=== PATIENT | female | born 1945 | race Caucasian/White ===

== ENCOUNTER 2020-10-24 08:10 | Outpatient (CLI) | payer MEDICARE, SELFPAY ==
--- NOTE | ~2020-10-24 | NM_ITS ---
EXAMINATION: NM soniya stress w perfusion DATE: 10/24/2020 11:55 INDICATION: Chest pain, unspecified. TECHNIQUE: Rest images were obtained following intravenous administration of 10.2 mCi Tc99m tetrofosm in (Myoview). The patient was infused intravenously with Lexiscan (regadenoson). Then, 31.77 mCi Tc99 m tetrofosmin (Myoview) was administered intravenously, and stress images were obtained. Data was rec onstructed into short axis and horizontal and vertical long axis SPECT images. Gated SPECT images wer e also obtained. COMPARISON: None. FINDINGS: There is a large, mild, fixed perfusion defect involving apical lateral segment and mid to basal anterolateral and inferolateral segments of left ventricle, consistent with infarct. No reversi ble component to suggest ischemia. There is no segmental wall motion abnormality. Left ventricular ejection fraction measures >70%. IMPRESSION: 1. 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 2. Normal left ventricular ejection fraction measuring >70%. Reviewed, dictated and finalized at location B.
--- NOTE | 2020-10-24 08:21 | ECHO_ITS ---
Patient Info Name: Opal Diaz Age: 75 years : 1945 Gender: Female Ht: 60 in Wt: 145 lbs BSA: 1.69 m2 HR: 61 bpm BP: 176 / 83 mmHg Technical Quality: Good Exam Date: 10/24/2020 9:06 AM Exam Location: [facility] Patient Status: Outpatient Admit Date: 10/24/2020 Staff Ordering Physician: Chapincito Dunlap DO Irrigation District Manager: Dee Anthony RDCS Attending Provider: Chapincito Dunlap DO Referring Physician: Germán GARDINER; Exam Type: CA echo doppler color flow Study Info Indications - cad s/p cabg R07.89 - Other chest pain Complete two-dimensional, color flow and Doppler transthoracic echocardiogram is performed. Summary 1. Complete two-dimensional, color flow and Doppler transthoracic echocardiogram is performed. 2. Left ventricular chamber dimension is normal. 3. Left ventricular systolic function is normal, estimated at 60-65%. 4. There is moderate asymmetric septal increased left ventricular wall thickness. 5. The left ventricular diastolic function is grade I diastolic dysfunction. 6. E/e' 15 is elevated. 7. Left atrial chamber dimension is severely enlarged. 8. There is mild aortic valve sclerosis. 9. The mitral valve has mildy calcified annulus. 10. There is mild mitral valve regurgitation. 11. No pulmonary hypertension, estimated pulmonary arterial systolic pressure is 15 mmHg. 12. There is trace pulmonic regurgitation. Left Ventricle E/e' 15 is elevated. Left ventricular chamber dimension is normal. Left ventricular systolic function is normal, estimated at 60-65%. There is moderate asymmetric septal increased left ventricular wall thickness. The left ventricular diastolic function is grade I diastolic dysfunction. Right Ventricle Right ventricular chamber dimension is normal. Right ventricular systolic function is normal. Left Atria Left atrial chamber dimension is severely enlarged. Right Atria Right atrial chamber dimension is normal. Aortic Valve The aortic valve is trileaflet. There is mild aortic valve sclerosis. There is no aortic valve stenosis. There is no aortic valve regurgitation. Pulmonic Valve There is trace pulmonic regurgitation. Mitral Valve The mitral valve has mildy calcified annulus. There is no mitral valve stenosis. There is mild mitral valve regurgitation. Tricuspid Valve There is no tricuspid valve regurgitation. No pulmonary hypertension, estimated pulmonary arterial systolic pressure is 15 mmHg. Pericardium/Pleural There is no pericardial effusion. Inferior Vena Cava Normal inferior vena cava with >50% collapse upon inspiration consistent with normal right atrial pressure, 5 mmHg. Aorta The aortic root size at the sinus of Valsalva is normal. Left Ventricular Outflow Tract Name Value Normal LVOT 2D LVOT Diameter 2.0 cm LVOT Doppler LVOT Peak Gradient 5 mmHg LVOT Mean Gradient 3 mmHg LVOT VTI 23 cm LVOT VTI/AV VTI Ratio 0.7 LVOT Stroke Volume 72 ml
--- NOTE | 2020-10-24 08:22 | EST_ITS ---
Patient Info Name: Opal Diaz Age: 75 years : 1945 Gender: Female Ht: 60 in Wt: 145 lbs BSA: 1.69 m2 HR: 58 bpm BP: 179 / 90 mmHg Heart Rhythm: Sinus Rhythm Exam Date: 10/24/2020 10:51 AM Exam Location: [facility] Patient Status: Outpatient Admit Date: 10/24/2020 Staff Ordering Physician: Chapincito Dunlap DO Attending Provider: Exercise Technologist: Marva Diaz CT Exercise Physician: Chapincito Dunlap DO Exam Type: CA stress soniya w NM Study Info Indications R07.9 - Chest pain, unspecified A regadenoson stress test was performed. Summary 1. 1. Negative lexiscan stress test for ischemic ST changes by ECG criteria. 2. 2. Baseline hypertension. 3. 3. Nuclear scan to follow and will be reported separately. Please correlate with it. 4. 4. Patient informed of the above results. Protocol: Lexiscan Stress ECG Details Stage: REST Duration (min): 1 min : 51 sec HR (bpm): 59 SBP (mmHg): 179 DBP (mmHg): 90 Stage: REST Duration (min): 6 min : 41 sec HR (bpm): 64 SBP (mmHg): 179 DBP (mmHg): 90 Stage: STAGE 1 Duration (min): 1 min : 0 sec HR (bpm): 63 SBP (mmHg): 179 DBP (mmHg): 90 Stage: RECOVERY Duration (min): 1 min : 0 sec HR (bpm): 71 SBP (mmHg): 171 DBP (mmHg): 94 Stage: RECOVERY Duration (min): 2 min : 0 sec HR (bpm): 86 SBP (mmHg): 171 DBP (mmHg): 94 Stage: RECOVERY Duration (min): 3 min : 0 sec HR (bpm): 80 SBP (mmHg): 183 DBP (mmHg): 89 Stage: RECOVERY Duration (min): 3 min : 21 sec HR (bpm): 83 SBP (mmHg): 183 DBP (mmHg): 89 Rest HR: 64 bpm Peak HR: 88 bpm Rest Sys BP: 179 mmHg Peak Sys BP: 183 mmHg Max Pred HR: 143 bpm % Max Pred HR: 62 % Target HR: 122 bpm Max RPP: 16,104 bpm*mmHg Termination Reason: Completed protocol Cardiac Symptoms: Shortness of breath Total Time: 1 min : 0 sec Rest Weathers BP: 90 mmHg Peak Weathers BP: 89 mmHg Total Dose: 0.4 mg Resting ECG Sinus rhythm, LVH with ST-T change, cannot r/o septal infarct, age indeterminate. Stress ECG No ST change. Arrhythmias None. Report Signatures
== END 2020-10-24 08:11 | disposition home or self-care (01) ==
LOC: ANHCARD 08:12
PROVIDERS: PCP Family Medicine; Visit Provider Internal Medicine Cardiovascular Disease
DX: R07.9 Chest pain, unspecified (principal)
CPT/HCPCS: 78452; 93017; 93306; A9502; J2785

== ENCOUNTER 2022-05-01 15:07 | Outpatient (NON) | payer MEDICARE, SELFPAY | END 2022-05-01 15:08 | disposition home or self-care (01) | LOC: CHSLAB 15:09 | PROVIDERS: Visit Provider Family Medicine | DX: N39.0 Urinary tract infection, site not specified (principal) | CPT/HCPCS: 87077; 87086; 87088; 87186 ==

== ENCOUNTER 2022-07-04 09:44 | Outpatient (CLI) | payer MEDICARE, SELFPAY ==
[2022-07-04 10:09] LABS: Appearance Urine Clear (Clear); Bilirubin Urine Negative (Negative); Blood Urine Negative (Negative); Color Urine Light Yellow (Yellow); Glucose Urine UA Negative (Negative); Ketones Urine Negative (Negative); Leukocyte Esterase Ur 1+ LEU/UL (Negative); Nitrate Urine Positive (Negative); Protein Urine Negative (Negative); Specific Grav Ur 1.025 (1.010-1.020); Urobilinogen Urine 0.2 mg/dL (0.2-1.0); pH Urine 5.5 (5.0-8.0)
[2022-07-04 10:15] LABS: Add Urine Microscopic? YES; Bacteria Urine 3+ /hpf; RBC Urine None seen /hpf (0-2); Renal Epithelial Cells Urine Few /hpf; Squamous Epithelial Cell Urine Few /hpf (Few)
== END 2022-07-04 09:45 | disposition home or self-care (01) ==
LOC: CHSLAB 09:47
PROVIDERS: PCP Family Medicine; Visit Provider Family Medicine
DX: R30.0 Dysuria (principal); R82.90 Unspecified abnormal findings in urine
CPT/HCPCS: 81001; 87077; 87086; 87088; 87186

== ENCOUNTER 2022-08-18 12:19 | Outpatient (CLI) | payer MEDICARE, SELFPAY ==
[2022-08-18 12:35] LABS: Appearance Urine Clear (Clear); Bilirubin Urine Negative (Negative); Blood Urine Negative (Negative); Color Urine Yellow (Yellow); Glucose Urine UA Negative (Negative); Ketones Urine Negative (Negative); Leukocyte Esterase Ur Negative LEU/UL (Negative); Nitrate Urine Negative (Negative); Protein Urine Negative (Negative); Specific Grav Ur >= 1.030 (1.010-1.020); Urobilinogen Urine 0.2 mg/dL (0.2-1.0); pH Urine 5.5 (5.0-8.0)
[2022-08-18 12:53] LABS: Add Urine Microscopic? NO
== END 2022-08-18 12:20 | disposition home or self-care (01) ==
PROVIDERS: PCP Family Medicine; Visit Provider Nurse Practitioner Family
DX: R30.0 Dysuria (principal)
CPT/HCPCS: 81003

== ENCOUNTER 2023-12-17 10:41 | Emergency (ER) | payer MEDICARE, SELFPAY ==
[2023-12-17] VITALS (7 sets, daily range): BP systolic 143–170; BP diastolic 65–67; PULSE 58–60; RESP 15–21; TEMP 36.4; O2SAT 94–97
--- NOTE | 2023-12-17 11:02 | ECG_ITS ---
Test Date: 2023-12-17 10:57:38 Measurements Intervals [place] Rate: 57 P: 79 PA: 221 QRS: -49 QRSD: 121 T: 110 QT: 452 QTc: 444 Interpretive Statements SINUS BRADYCARDIA WITH FIRST DEGREE AV BLOCK LEFT ANTERIOR FASCICULAR BLOCK [QRS AXIS <= -45, QR IN I, RS IN II] LEFT VENTRICULAR HYPERTROPHY AND ST-T CHANGE [VOLTAGE CRITERIA PLUS ST/T ABNORMALITY] ABNORMAL ECG No previous ECG available for comparison Electronically Signed On 12-18-2023 12:42:16 CDT by Bucky Lara M.D.
--- NOTE | 2023-12-17 11:08 | ED.GENADULT ---
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 Patient has no fever chills nausea vomiting no diaphoresis. Related Data Home Medications Medication Instructions Recorded Confirmed aspirin 81 mg tablet,delayed 81 mg PO DAILY 09/20/20 04/04/22 release cholecalciferol (vitamin D3) 125 125 mcg PO DAILY 09/20/20 04/04/22 mcg (5,000 unit) capsule lutein 6 mg tablet 6 mg PO DAILY 11/15/20 04/04/22 omega 3-wqt-ggq-fish oil 138 cap PO 11/15/20 04/04/22 mg-183 mg-1,000 mg capsule zinc 50 mg tablet 50 mg PO DAILY 11/15/20 04/04/22 cholecalciferol (vitamin D3) 125 125 mcg PO DAILY 12/27/21 04/04/22 mcg (5,000 unit) capsule Allergies Allergy/AdvReac Type Severity Reaction Status Date / Time alendronate sodium Allergy Intermediate Abdominal Verified 12/17/23 10:54 Pain lisinopril Allergy Intermediate angioedema Verified 12/17/23 10:54 acetaminophen [From Lortab] Allergy Mild Rash Unverified 12/17/23 10:54 codeine Allergy Mild Rash Unverified 12/17/23 10:54 hydrocodone [From Lortab] Allergy Mild Rash Verified 12/17/23 10:54 lansoprazole [From Prevacid] Allergy Mild Rash Verified 12/17/23 10:54 propoxyphene [From Darvon] Allergy Mild Rash Verified 12/17/23 10:54 vancomycin Allergy Mild Rash Verified 12/17/23 10:54 Review of Systems Review of Systems: All systems reviewed & are unremarkable except as noted in HPI and below PMFSH Past Medical History Medical History Cataract of left eye 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, managed as type 1 Heart murmur Primary osteoarthritis of left knee Statin intolerance Family History Family History Father Hypertension Family history of coronary artery disease Acute myocardial infarction Mother Hypertension Family history of rheumatoid arthritis Family history of diabetes mellitus in first degree relative Family history of coronary artery disease Family history of arthritis Grandparent Family history of malignant neoplasm Other Family history of congenital heart disease Family history of psoriasis Social History Social History Smoking status: Never smoker Alcohol intake: never Exam Const: General: cooperative, healthy appearing, comfortable, no acute distress and well developed Neck: Neck: normal visual inspection, full ROM and no lymphadenopathy Chest: Chest palpation & inspection: normal inspection of the chest Resp: Effort & Inspection: normal respiratory effort Cardio: Jugular venous distension: no JVD Palpation: normal PMI Rate: regular rate Rhythm: regular rhythm Heart sounds: S1 normal heart sound present and S2 normal heart sound present GI: Inspection: normal to inspection Auscultation: normal bowel sounds Skin: General skin exam: normal color and no rashes or lesions noted Neuro: General: oriented to person, oriented to place and oriented to time Extrem: General: normal to inspection, full ROM and capillary refill normal Course Course Emergency Course: Patient presents to the ER with some no chest pain and was just advised by electric locomotive firer/fireman have an EKG performed. EKG performed reviewed which shows sinus Chu with first-degree AV block otherwise no ST or T changes. Vital Signs Vital signs: Vital Signs Pulse Rate 59 L 12/17/23 10:47 Temperature 36.4 C 12/17/23 10:52 Pulse Rate 58 L 12/17/23 10:52 Respiratory Rate 20 12/17/23 10:55 Bl
== END 2023-12-17 11:20 | disposition home or self-care (01) ==
PROVIDERS: Emergency Provider Emergency Medicine; PCP Family Medicine
DX: I25.810 Atherosclerosis of coronary artery bypass graft(s) without angina pectoris (principal); E13.9 Other specified diabetes mellitus without complications
CPT/HCPCS: 93005; 99284

== ENCOUNTER 2024-07-13 16:39 | Outpatient (NON) | payer MEDICARE, SELFPAY ==
--- OUTSIDE RECORDS SUMMARY | 2024-07-13 16:42 | XMS_ITS | Continuity of Care Document ---
Author Organization [facility] Address [address] [facility] [address] [place] [address] Phone Care Team Providers Care Registered Phlebotomist Part Time Name Role Phone Angelita DEL CID, Tonio Unavailable Unavaila ble Allergies, Adverse Reactions, Alerts Substance Reaction Status Criticality trimethoprim Active No Information sulfamethoxazole Active No Informat ion PROPOXYPHENE HCL Active No Informat ion vancomycin Active No Information HYDROCODONE BITARTRATE Active No In formation acetaminophen Active No Information codeine Active No Information Medications Medication Instructions Dosage Effective Dates (start - stop) Status Comments diclofenac 0.1 % eye drops Instill one drop into right eye 4 times a day for 4 weeks after surgery - Active prednisolone acetate 1 % eye drops,suspension Instill 1 drop into right eye 4 times a day for 4 weeks after surgery - Active ofloxacin 0.3 % eye drops Instill 1 drop into right eye 4 times a day for 1 week after surgery - Active Lotemax SM 0.38 % eye gel drops instill 1 gtt BID into surgical eye starting 4 hrs after surgery and continue 4 weeks after surgery. - Active Use this Alternative only: Predforte 5ml instill 1 gtt QID into surgical eye starting 4 hrs after surgery and continue for 4 weeks after surgery (3 refills) Prolensa 0.07 % eye drops instill 1 gtt QD into operative eye starting 4 hours after surgery and continue for 4 weeks after surgery(see comments below) - Active use this generic Alternative only: Ketorolac 5ml 0.5% 1 gtt QID into surgical starting 4 hrs after surgery and continue for 4 weeks after surgery. 5 refills isosorbide mononitrate ER 30 mg tablet,extended release 24 hr take 1 tablet by oral route every day in the morning 30 MG - Active nebivolol 10 mg tablet take 2 tablet by oral route every day 20 MG - Active Aspir-81 ORAL TABLET - Active FISH OIL (unknown strength) Not Available - Active lutein 6 mg tablet - Active Vitamin C (unknown strength) Not Available - Active Procedures Procedure Date POSTOP FOLLOW-UP VISIT POSTOP FOLLOW-UP VISIT CATARACT SURG W/IOL, 1 STAGE OFFICE/OUTPATIENT VISIT, NEW OPHTHALMIC BIOMETRY/IOL MASTER 24 GDX Retina REFRACTION Advance Directives Directive Yes / No Effective Date File Name No Information Encounters Encounter Description Practice Location Reason(s) For Visit Diagnoses Date Provider Providers Copied on Encounter [facility], [address] [place] [address], [id number], tel:[phone] [facility] CONSULT [facility] post op (chief complaint) Presence of intraocular lens 4 Angelita Howelll. [address] [facility], [address] [place] [address], [id number], [place]. tel:[phone] Referring Provider: No PCP A.. [facility], [address] [place] [address], [id number], tel:[phone] OPH CONSULT [facility] Same Day Post Op (chief complaint) No Information 4 Gerry Sawyer. [address] [place] [address], [address] [facility], [place], [place], [id number], [place]. tel:[phone] Referring Provider: No PCP A.. [facility], [address] [place] [address], [id number], [place] tel:[phone] [facility] No Information 4 Angelita Househil. [address] [facility], [address], [place], [place], [id number], [place]. tel:[phone] Referring Provider: No PCP A.. [facility], [id number] [place] [address] [address], [place], [place], [id number], tel:[phone] OPH CONSULT [facility] No Information 4 Angelita Househil. [address], [address], [place], [place], [id number], [place]. tel:[phone] OFFICE/OUTPA TIENT VISIT, [facility], [address] [facility] [address], [place], [place], [id number], tel:[phone] OPH CONSULT [facility] blurry vision (chief complaint) DM (chief complaint) Vitreous degeneration, bilateralDerma tochalasis of unspecified eye, unspecified eyelidType 2 diabetes mellitus without complication, without long-term current use of insulinDrusen of macula of both eyesCortical age-related cataract, bilateralKerat oconjunctiviti s sicca of both eyes not due to Sjogren's syndromePresen ce of intraocular lensAge-relate d nuclear cataract, right eye 4 Angelita Househil. [address], [address], [place], [place], [id number], [place]. tel:[phone] Referring Provider: No PCP A.. Family History Family Member Type Diagnosis Age At Onset Mother Problem Diabetes mellitus Problem No family history of Glaucom a Problem No family history of Macular degeneration Payers Payer name Insurance type Covered green party ID Authoryamilea tigucci(s) [facility] Medicare Advantage Ppo CI [id number] Social History Type Description Quantity Date Captured Comments Sex Female Smoking Status No Information Chief Complaint And Reason For Visit From encounter dated '05/14/2023 11:45'. post op (chief complaint). Description: The 78 year old female presents for 1 week post op OD std dist. OD vision is good. No pain or discomfort OU. Uses AT's PRN OU. s/p PCIOL OSh/o DM IIrefby family friend Reason For Referral Reason For Referral No Information History Of Present Illness Encounter Date Complaint History Of Prese nt Illness post op The 78 year old female presents for 1 week post op OD std dist. OD vision is good. No pain or discomfort OU. Uses AT's PRN OU. s/p PCIOL OSh/o DM IIref by family friend Same Day Post Op The 78 year old female presents for Same Day Post Op for Cat Sx OD, 2nd Eye. Pt complains of blurry vision OD since the Sx, constant, already getting better. She denies any current pain or discomfort. She is using the Generic Drops OD as directed, hasn't started yet. Std/Dist PCIOL OU blurry vision The 78 year old female presents for evaluation of blurry vision in the right eye. It started about 1 year(s) ago. It occurs all the time. It affects both near and far vision. Pt is also bothered by glare. She last had an eye exam 5 yrs ago. She presents for a cataract evaluation. She was ref'd by a friend of her daughter. DM The patient is p resent for evaluation of DM in the right eye. It started about 15 year(s) ago. It occurs all the time. The condition is stable. Pt doesn't know if or when she has had an A1C done. Unsure who pt is followed by. She does not check her blood sugar. A mac OCT was ordered today. Functional Status Date Functional Assessmen t No Information Instructions Date Instruction Additional Infor annita Impression/Plan Related to Prese nce of intraocular lens Impression/Plan Related to Prese nce of intraocular lens Impression/Plan Related to Druse n of macula of both eyes Impression/Plan Related to Age-r elated nuclear cataract, right eye Impression/Plan Related to Prese nce of intraocular lens Impression/Plan Related to [place] tochalasis of unspecified eye, unspecified eyelid Impression/Plan Related to Kerat oconjunctivitis sicca of both eyes not due to Sjogren's syndrome Impression/Plan Related to Type 2 diabetes mellitus without complication, without long-term current use of insulin Impression/Plan Related to Vitre ous degeneration, bilateral Impression/Plan Related to Corti gordon age-related cataract, bilateral Assessments Type Assessment Date assessment Presence of intraocular lens May Patient Care Teams Name Effective Dates (start - stop) Status Members No Information
--- OUTSIDE RECORDS SUMMARY | 2024-07-13 16:42 | XMS_ITS | Encounter Summary ---
Author Organization [facility] Address 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
--- OUTSIDE RECORDS SUMMARY | 2024-07-13 16:42 | XMS_ITS | Clinical Summary ---
Author Organization [facility] Rezee Address [address] [place] [address] Care Team Providers Care Tax Services Intern Name Role Phone LiannaRosa Iselasteffi JONES Primary Care Provider [phone] Source Comments [facility],non-[facility] Affiliates and Associated Physician Practices is amultiple site organization consisting of ambulatory clinics and hospital sitesin [place], [place], [place] and [place]. This disclosure is being madepursuant to the Care Everywhere program and may not contain all information available regarding this patient. Last updated 17.[facility] Allergies Active Allergy Reactions Criticality Noted Date Comments Codeine Rash Medium 12/10/2020 Propoxyphene Swelling 12/10/2020 Lortab Rash Medium 12/10/2020 Vancomycin Rash Medium 12/10/2020 Medications * Be aware that medications may not be up to date on this document. Alwaysverify current medications with the patient. aspirin EC (ECOTRIN) 81 MG tablet Take 1 (one) tablet by mouth once daily Active celecoxib (CeleBREX) 100 MG capsule Take 1 (one) capsule by mouth once daily Active Lutein 6 MG Take 6 mg by mouth once daily Active Zinc 30 MG Take 5 mg by mouth once daily Active prednisoLONE acetate (Pred Forte) 1 % ophthalmic suspension INSTILL 1 DROP INTO RIGHT EYE 4 TIMES A DAY FOR 4 WEEKS AFTER SURGERY 04/23/2023 Active ofloxacin (Ocuflox) 0.3 % ophthalmic solution INSTILL 1 DROP INTO RIGHT EYE 4 TIMES A DAY FOR 1 WEEK AFTER SURGERY 04/23/2023 Active isosorbide mononitrate CR 24hr (Imdur) 30 MG tablet Take 1 (one) tablet by mouth once daily 90 tablet 3 09/09/2023 Active nebivolol (Bystolic) 10 MG tablet TAKE 1 TABLET BY MOUTH EVERY DAY 90 tablet 3 10/14/2023 Active ezetimibe (Zetia) 10 MG tablet TAKE 1 TABLET BY MOUTH EVERY DAY 90 tablet 3 10/14/2023 Active Encounters Date Type Department Care Team Description 06/14/2024 12:47 PM CDT - 06/14/2024 11:59 PM CDT Hospital Encounter [facility] [address] [place] [address] Gm Sawyer MD Discharge Disposition: Home or Self Care 06/06/2024 Travel 06/06/2024 Orders Only [facility] [id number] [place] [address], [facility] [address] [place] [address] Gm Sawyer MD PAD (peripheral artery disease) 06/06/2024 Nurse Triage [facility] [id number] [place] [address], [facility] [address] [place] [address] Gm Sawyer MD Hypostasis from Last 3 Months Social History Tobacco Use Types Packs/Day Years Used Date Smoking Tobacco: Never Smokeless Tobacco: Never Tobacco Cessation:Counseling Given: No Comments Unknown Sex and Gender Information Value Date Recorded Sex Assigned at Female 01/10/2021 12:07 PM CDT Legal Sex Female 3:19 PM CDT Gender Identity Female 01/10/2021 12:07 PM CDT Sexual Orientation Not on file Last Filed Vital Signs Vital Sign Reading Time Taken Comments Blood Pressure 134/72 09/09/2023 2:45 PM CDT Pulse 61 09/09/2023 2:45 PM CDT Temperature - - Respiratory Rate 16 06/10/2021 1:55 PM CDT Oxygen Saturation 96% 09/09/2023 2:45 PM CDT Inhaled Oxygen Concentration - - Weight 61.6 kg (135 lb 12.8 oz) 09/09/2023 2:45 PM CDT Height 149.9 cm (4' 11 ) 09/09/2023 2:45 PM CDT Body Mass Index 27.43 09/09/2023 2:45 PM CDT Plan of Treatment Upcoming Encounters Date Type Department Care Team (Late st Contact Info) Description 09/07/2024 1:50 PM CDT Office Visit [facility] [address] [facility] [address] [place] [address] [place] [address] [facility] [address] [place] [address] Health Maintenance Due Date Last Done Comments DTAP/TDAP/TD VACCINES (1 - Tdap) 1962 PNEUMOCOCCAL VACCINE 50+ (1 of 1 - PCV) 1993 ZOSTER VACCINE (1 of 2) 1993 Respiratory Syncytial Virus (RSV) Vaccine Pt: or over 60 yrs (1 - 1-dose 75+ series) 2018 COVID-19 VACCINE (4 - 2023-2 5 season) 2023 01/30/2021, 05/23/2020, 05/02/2020 DEPRESSION SCREENING 03/09/2024 MEDICARE AWV CALENDAR YEAR 2024 INFLUENZA VACCINE (Season Ended) 2024 BONE DENSITY TESTING Completed 07/16/2022 HEPATITIS B VACCINE Aged Out No longe r eligible based on patient's age to complete this topic HIB VACCINE Aged Out No longer eligi ble based on patient's age to complete this topic HPV VACCINE Aged Out No longer eligi ble based on patient's age to complete this topic MENINGOCOCCAL (Group B) VACCINE SHARED DECISION-MAKING Aged Out No longer eligible based on patient's age to complete this topic MENINGOCOCCAL GROUPS A/C/Y/W VACCINE Aged Out No longer eligible b ased on patient's age to complete this topic Procedures Procedure Name Priority Date/Time Associated Diagnosis Comments VAS ARTERIAL ANKLE ARM INDEX CARIE 06/14/2024 2:35 PM CDT PAD (peripheral artery disease) from Last 3 Months Results * VAS Arterial Ankle Arm Index (06/14/2024 2:35 PM CDT) Anatomical Region Laterality Modality Ankle / Foot, Upper Extremity In travascular Ultrasound 06/14/2024 10:4 9 AM CDT Narrative Procedure Note Nolberto Diaz Sr., MD - 06/14/2024 [facility] [place] [address] Lower Extremity Arterial Doppler Report Pat.Name: SID DIAZ Pat.ID: [id number] .Date: 06/14/2024 Exam Time: 10:49:00 AM Study Type:ANIL/PVR Age: 11 1945,79Y Sex: FEMALE Sonogrphr: Lydia Gonzales RVApryl Pat. Stat.:Outpatient CPT - 4: 42485 Reason for Study: Right great toe has a callous on the end of it. Some pain. History / Clinical: Hypertension, Coronary artery disease, CABG Procedures: Ankle Brachial Index Visit ID: [id number] ++++++++++++++++++++++++++++++++++++ SUMMARY: ++++++++++++++++++++++++++++++++++++ No evidence for significant arterial insufficiency of either the right or left lower extremity at rest. Bilateral digital tracings are widened, dampened. ++++++++++++++++++++++++++++++++++++ FINDINGS: ++++++++++++++++++++++++++++++++++++ Procedure: The arterial vasculature of the lower extremities was evaluated by analysis of Doppler pressures and waveforms obtained in the legs at rest. Study Quality: This study is of adequate technical quality. Doppler Waveforms: Right Left Common Fem Triphasic Triphasic Popliteal Biphasic Tri to Bi Posterior Tibial Tri to Bi Tri to Bi Dorsalis Pedis Tri to Bi Biphasic ++++++++++++++++++++++++++++++++++++ MEASUREMENTS: ++++++++++++++++++++++++++++++++++++ PRESSURES Right 1st Digit GreatToe P 182 mmHg Right ANIL (DP) ANIL (DP) 0.91 Right ANIL (PT) ANIL (PT) 1 Right Ankle DP AnkleDP P 184 mmHg Right Ankle PT AnklePT P 198 mmHg Right Brachial Brach P 189 mmHg Right DBI DBI 0.9 Left 1st Digit GreatToe P 152 mmHg Left ANIL (DP) ANIL (DP) 0.84 Left ANIL (PT) ANIL (PT) 0.98 Left Ankle DP AnkleDP P 170 mmHg Left Ankle PT AnklePT P 198 mmHg Left Brachial Brach P 202 mmHg Left DBI DBI 0.75 Signed 06/14/2024 05:02 PM Nolberto Diaz MD, RPVI Gm Sawyer MD VASCULAR LAB ORDERABLES Edited from Last 3 Months Insurance MANAGED MEDICARE ADV Care Teams Tax Services Intern Relationship Specialty Start Date End Date Kenneth Dsouza DO [address] [place] [address] PCP - General Family Medicine 07/16/22
--- OUTSIDE RECORDS SUMMARY | 2024-07-13 16:42 | XMS_ITS | Encounter Summary ---
Author Organization [facility] Address 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
--- OUTSIDE RECORDS SUMMARY | 2024-07-13 16:42 | XMS_ITS | Continuity of Care Document ---
Author Organization [facility] Address [address] [place] [address] [facility] [address] [place] [address] Phone Care Team Providers Care Data Steward Name Role Phone Tonio Goldstein Unavailable Unavailable Procedures Procedure Date Eye Exam, New Patient Advance Directives Directive Yes / No Effective Date File Name No Information Encounters Encounter Description Practice Location Reason(s) For Visit Diagnoses Date Provider Providers Copied on Encounter [facility], [address] [place] [address] [address], [place], [place], [id number], [place] tel:[phone] [facility] [place] No Information [phone] Angelita Tonio. [address], [place], [address], [place]. tel:[phone] Family History Family Member Type Diagnosis Age At Onset No Information Payers Payer name Insurance type Covered libertarian ID Authoriza tion(s) No Information Social History Type Description Quantity Date Captured Comments Sex Female Smoking Status No Information Chief Complaint And Reason For Visit No Information Reason For Referral Reason For Referral No Information History Of Present Illness Encounter Date Complaint History Of Prese nt Illness No Information Functional Status Date Functional Assessmen t No Information Instructions Date Instruction Additional Infor mation No Information Assessments Type Assessment Date No Information Patient Care Teams Name Effective Dates (start - stop) Status Members No Information
--- OUTSIDE RECORDS SUMMARY | 2024-07-13 16:42 | XMS_ITS | Clinical Summary ---
Author Organization [facility] Address [address] 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
--- OUTSIDE RECORDS SUMMARY | 2024-07-13 16:42 | XMS_ITS | Clinical Summary ---
Author Organization [facility] Address [facility] [place] [address] Care Team Providers Care Forepart Rounder Name Role Phone SimoneKenneth townsend Primary Care Provider Allergies Active Allergy Reactions Criticality Noted Date Comments Codeine Lansoprazole Propoxyphene Vancomycin Medications aspirin 81 mg enteric coated tablet Take 1 tablet (81 mg total) by mouth daily Active ezetimibe (ZETIA) 10 mg tablet 06/23/2022 Active isosorbide mononitrate ER (IMDUR) 30 mg 24 hr tablet 06/23/2022 Active nebivoloL (BYSTOLIC) 10 mg tablet 05/06/2022 Active sulfamethoxazole -trimethoprim (BACTRIM DS) 800-160 mg per tablet Take 1 tablet by mouth every 12 (twelve) hours 07/04/2022 Active lutein 6 mg tablet Take 6 mg by mouth daily Active zinc gluconate 30 mg tablet Take 5 mg by mouth daily Active Active Problems Problem Noted Date Diagnosed Date Chronic coronary artery disease 07/08/2016 Hypertension 07/08/2016 Hyperlipidemia 07/08/2016 Knee pain 07/08/2016 Medical History Medical History Date Comments Hypertension Hyperlipidemia Diabetes (HCC) Cataract Psoriasis Rosacea Family History Medical History Relation Name Comments Coronary artery disease Brother Fami ly history of coronary artery disease - (Added by TW Conv) Hypertension Brother Family history of hypertension - (Added by TW Conv) Coronary artery disease Father Fami ly history of coronary artery disease - (Added by TW Conv) Heart attack Father Family history of heart attack - (Added by TW Conv) Heart failure Father Family history of heart failure - (Added by TW Conv) Hypertension Father Family history of hypertension - (Added by TW Conv) Sudden Cardiac Father Family history of sudden cardiac (SCD) - (Added by TW Conv) Coronary artery disease Mother Fami ly history of coronary artery disease - (Added by TW Conv) Hypertension Mother Family history of hypertension - (Added by TW Conv) Coronary artery disease Sister Fami ly history of coronary artery disease - (Added by TW Conv) Hypertension Sister Family history of hypertension - (Added by TW Conv) Relation Name Status Comments Brother Father Mother Sister Social History Tobacco Use Types Packs/Day Years Used Date Smoking Tobacco: Never AUDIT-C Answer Date Recorded Q1: How often do you have a drink containing alc ohol? 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 Gender Identity Not on file Sexual Orientation Not on file Obstetrics History Last Filed Vital Signs Vital Sign Reading Time Taken Comments Blood Pressure 127/71 07/07/2022 1:25 PM CDT Pulse 51 07/07/2022 1:25 PM CDT Temperature 36.3 C (97.4 F) 07/07/2022 1:25 PM CDT Respiratory Rate - - Oxygen Saturation 97% 07/08/2016 12:53 PM CDT Inhaled Oxygen Concentration - - Weight 62.4 kg (137 lb 9.6 oz) 07/07/2022 1:25 P M CDT Height 152.4 cm (5') 07/07/2022 1:25 PM CDT Body Mass Index 26.87 07/07/2022 1:25 PM CDT Plan of Treatment Health Maintenance Due Date Last Done Comments Depression Screening 1945 Fall Risk Assessment 1945 Hepatitis B Screening 1961 Pneumococcal vaccine 65+ (1 of 2 - PCV) 1962 Zoster Vaccine (1 of 2) 1993 DTaP/Tdap/Td Vaccine (1 - Tdap) 08/12/2003 4 Well Visit 65+ 01/21/2008 Covid-19 Vaccine (2023-2 5 season) 2023 01/23/2022, 07/07/2021, 05/23/2020, Additional history exists Osteoporosis Screening-Bone Density Scan 07/16/2024 07/16/2022 Influenza Vaccine (Season Ended) 2024 02/03/20 22 Procedures Procedure Name Priority Date/Time Associated Diagnosis Comments DEXA AXIAL SKELETON BONE DENSITY 1 OR MORE SITES Schedule Routine, Read Routine (OP Routine) 07/16/2022 11:01 AM CDT Osteoarthritis of multiple joints, unspecified osteoarthritis type Rheumatoid arthritis, involving unspecified site, unspecified whether rheumatoid factor present (HCC) Osteopenia, unspecified location Polyarthritis Polyarthritis, unspecified Coronary artery disease, unspecified vessel or lesion type, unspecified whether angina present, unspecified whether [place] or transplanted heart Diabetes 1.5, 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 Based on machine cross-calibration and precision studies the least significant changes of this densitometer is 0.024 g/cm2 at the spine, 0.020 g/cm2 at the total proximal femur, and 0.014g/cm2 at the forearm. HISTORY: This is a 77 y.o. postmenopausal female with a history of low bone mass. She reports that she has never smoked. She does not have any smokeless tobacco history on file. Currently on treatment with vitamin D, previously treated with diuretics, and current complaint of arm pain, back pain, neck pain, and leg pain. INDICATIONS: Menopause status and history of low bone mass. FINDINGS: BONE MINERAL DENSITY OF THE LUMBAR SPINE Bone Mineral Density (BMD) of the lumbar spine was measured from L1-L4 and the average density was calculated to be 0.972 gm/cm2. This corresponds to a T-score (standard deviations from the mean of young adults) of -0.7. There is no previous study available for comparison. BONE MINERAL DENSITY OF THE PROXIMAL FEMUR Bone Mineral Density (BMD) of the left hip total was found to be 0.678 gm/cm2. This corresponds to a T-score standard deviations from the mean of young adults of -2.2. Femoral neck is 0.595 gm/cm2 with a T-score (standard deviations from the mean of young adults) of -2.3. There is no previous study available for comparison. BONE MINERAL DENSITY OF THE FOREARM Bone Mineral density (BMD) of the right proximal 1/3 of the radius measures 0.476 gm/cm2. This corresponds to a T-score (standard deviations from the mean of young adults) of -3.6. There is no previous study available for comparison. A forearm bone density study was performed in addition to the routine study because of severe degenerative disease SUMMARY: Bone mineral density shows evidence of osteoporosis and marked increase risk of fracture. ADDITIONAL COMMENTS: Postmenopausal Women and Men Over 50: Diagnostic criteria: Osteoporosis: BMD at or below -2.5 T-score; Osteopenia (low bone mass): BMD between -1.0 and -2.5 T-score. If the patient has a history of a fragility fracture, a fracture that occurred with trauma equivalent to a fall from a standing position or less, then the diagnosis is osteoporosis regardless of bone density. The history and data sections of the bone mineral density scan were prepared by Carrie Ji)(CBDT) who is accredited by the International Society of Clinical Densitometry. The overall patient assessment and scan interpretation were performed by Latoya Kruse M.D. who is certified by the International Society of Clinical Densitometry. [id number] Lainey Funes MD IMG DXA PROCEDURES Final Re sult from Last 3 Months or Most Recently Relevant to Health Maintenance Insurance [facility] MEDICARE ADVANTAGE [facility] MEDICARE ADVANTAGE Care Teams Forepart Rounder Relationship Specialty Start Date End Date Kenneth Dsouza DO [address] [place] [address] PCP - General Family Medicine 07/07/22
--- OUTSIDE RECORDS SUMMARY | 2024-07-13 16:42 | XMS_ITS | Encounter Summary ---
Author Organization [facility] Address 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
--- OUTSIDE RECORDS SUMMARY | 2024-07-13 16:42 | XMS_ITS | Referral Summary ---
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 Based on machine cross-calibration and [...] by the International Society of Clinical Densitometry. [id number] Lainey Funes MD IMG DXA PROCEDURES Final Re sult from Last 3 Months or Most Recently Relevant to Health Maintenance Insurance [facility] MEDICARE ADVANTAGE [facility] MEDICARE ADVANTAGE Care Teams Certified Physician'S Assistant Relationship Specialty Start Date End Date Kenneth Dsouza DO [address] [place] [address] PCP - General Family Medicine 07/07/22
[2024-07-13 17:06] LABS: Add Urine Microscopic? YES; Appearance Urine Clear (Clear); Bilirubin Urine Negative (Negative); Blood Urine Trace-intact (Negative); Color Urine Light Yellow (Yellow); Glucose Urine UA Negative (Negative); Ketones Urine Negative (Negative); Leukocyte Esterase Ur 1+ LEU/UL (Negative); Nitrate Urine Positive (Negative); Protein Urine Negative (Negative); Urobilinogen Urine 0.2 mg/dL (0.2-1.0)
[2024-07-13 17:29] LABS: Bacteria Urine 4+ /hpf; RBC Urine None seen /hpf (0-2); Squamous Epithelial Cell Urine Few /hpf (Few)
== END 2024-07-13 16:40 | disposition home or self-care (01) ==
LOC: CHSLAB 16:41
PROVIDERS: PCP Nurse Practitioner Family; Visit Provider Nurse Practitioner Family
DX: R32 Unspecified urinary incontinence (principal)
CPT/HCPCS: 81001; 87077; 87086; 87088; 87186

== ENCOUNTER 2024-07-29 14:20 | Outpatient (NON) | payer MEDICARE, SELFPAY ==
--- OUTSIDE RECORDS SUMMARY | 2024-07-29 14:23 | XMS_ITS | Clinical Summary ---
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 Based on machine cross-calibration and [...] by the International Society of Clinical Densitometry. [id number] Lainey Funes MD IMG DXA PROCEDURES Final Re sult from Last 3 Months or Most Recently Relevant to Health Maintenance Insurance [facility] MEDICARE ADVANTAGE [facility] Address: [address] [place], [place] [id number] [facility] MEDICARE ADVANTAGE [facility] Address: [address] [place] [phone] Care Teams Safe Deposit Clerk Relationship Specialty Start Date End Date Kenneth Dsouza DO [address] [place] [address] PCP - General Family Medicine 07/07/22
--- OUTSIDE RECORDS SUMMARY | 2024-07-29 14:23 | XMS_ITS | Clinical Summary ---
Author Organization [facility] Address [address] [facility] [place] [address] Care Team Providers Care Wedger Machine Name Role Phone LiannaRosa Iselasteffi JONES Primary Care Provider [phone] Source Comments [facility] hospital Affiliates and Associated Physician Practices is amultiple site organization consisting of ambulatory clinics and hospital sitesin [place], [place], [place] and [place]. This disclosure is being madepursuant to the Care Everywhere program and may not contain all information available regarding this patient. Last updated 17.[facility] Allergies Active Allergy Reactions Criticality Noted Date [...] - 06/14/2024 11:59 PM CDT Hospital Encounter [facility] [address] [place] [address] Gm Sawyer MD Discharge Disposition: Home or Self Care 06/06/2024 Travel 06/06/2024 Orders Only [facility] [address] [place] [address], [facility] [address] [place] [address] Gm Sawyer MD PAD (peripheral artery disease) 06/06/2024 Nurse Triage [facility] [address] [place] [address], [facility] [address] [place] [address] Gm Sawyer MD Hypostasis from Last 3 [...] Description 09/07/2024 1:50 PM CDT Office Visit [facility] [address] [facility] [address] [place] [address] [place] [address] [facility] [address] [place] [address] Health Maintenance Due Date Last [...] Note Nolberto Diaz Sr., MD - 06/14/2024 [facility] [place] [address] Lower Extremity Arterial Doppler Report Pat.Name: SID DIAZ Pat.ID: [id number] .Date: 06/14/2024 Exam Time: 10:49:00 AM Study Type:ANIL/PVR Age: 11 1945,79Y Sex: FEMALE Sonogrphr: Lydia Gonzales RVApryl Pat. Stat.:Outpatient CPT - 4: 01398 Reason for Study: Right great toe has a callous on the end of it. Some pain. History / Clinical: Hypertension, Coronary artery disease, CABG Procedures: Ankle Brachial Index Visit ID: [id number] ++++++++++++++++++++++++++++++++++++ SUMMARY: ++++++++++++++++++++++++++++++++++++ No evidence for significant [...] Months Insurance MANAGED MEDICARE ADV Care Teams Wedger Machine Relationship Specialty Start Date End Date Kenneth Dsouza DO [address] [place] [address] PCP - General Family Medicine 07/16/22
--- OUTSIDE RECORDS SUMMARY | 2024-07-29 14:23 | XMS_ITS | Referral Summary ---
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 Based on machine cross-calibration and [...] by the International Society of Clinical Densitometry. [id number] Lainey Funes MD IMG DXA PROCEDURES Final Re sult from Last 3 Months or Most Recently Relevant to Health Maintenance Insurance [facility] Address: [address] [address] [place] [address] [facility]IC[facility] Address: [address] [address] [place] [address] Care Teams Cellar Worker Relationship Specialty Start Date End Date Kenneth Dsouza DO [address] [place] [address] PCP - General Family Medicine 07/07/22
--- OUTSIDE RECORDS SUMMARY | 2024-07-29 14:23 | XMS_ITS | Encounter Summary ---
Author Organization [facility] Address 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
--- OUTSIDE RECORDS SUMMARY | 2024-07-29 14:23 | XMS_ITS | Continuity of Care Document ---
Author Organization [facility] Address [address] [place] [address] [facility] [address] [place] [address] Phone Care Team Providers Care Supervisor Smoke Control Name Role Phone Tonio Goldstein Unavailable Unavailable Procedures Procedure Date Eye Exam, New Patient Advance Directives Directive Yes / No Effective Date File Name No Information Encounters Encounter Description Practice Location Reason(s) For Visit Diagnoses Date Provider Providers Copied on Encounter [facility], [address] [place] [address] [address], [place], [place], [id number], [place] tel:[phone] [facility] [place] No Information [phone] Angelita Tonoi. [address] [facility] [address], [place], [address], [place]. tel:[phone] Family History Family Member Type Diagnosis Age At Onset No Information Payers Payer name Insurance type Covered constitution party ID Authoriza tion(s) No Information Social History [...]
--- OUTSIDE RECORDS SUMMARY | 2024-07-29 14:23 | XMS_ITS | Encounter Summary ---
Author Organization [facility] Address [address] [place] [address] Care Team Providers Care Airport Control Operator Name Role Phone Unavailable Primary Care Provider Unavailabl e Encounter Details Date Type Department Care Team (Late st Contact Info) Description 07/23/1998 Outpatient Historical HIS MD Tila DELEON Bakr, MD 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
--- OUTSIDE RECORDS SUMMARY | 2024-07-29 14:23 | XMS_ITS | Encounter Summary ---
Author Organization [facility] Address 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
--- OUTSIDE RECORDS SUMMARY | 2024-07-29 14:23 | XMS_ITS | Clinical Summary ---
Author Organization [facility] Address [address] 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
--- OUTSIDE RECORDS SUMMARY | 2024-07-29 14:24 | XMS_ITS | Continuity of Care Document ---
Author Organization [facility] Address [address] [facility] [address] [place] [address] Phone Care Team Providers Care Automotive Mechanic Name Role Phone Angelita DEL CID, Tonio [...] Provider Providers Copied on Encounter [facility], [address] [place] [address], [id number], tel:[phone] [facility] post op (chief complaint) Presence of intraocular lens 4 Angelita Howelll. [address] [facility], [address] [place] [address], [id number], [place]. tel:[phone] Referring Provider: No PCP A.. [facility], [address] [place] [address], [id number], tel:[phone] [facility] Same Day Post Op (chief complaint) No Information 4 Gerry Sawyer. [address] [place] [address], [address] [facility], [place], [place], [id number], [place]. tel:[phone] Referring Provider: No PCP A.. [facility], [address] [place] [address], [id number], [place] tel:[phone] [facility] No Information 4 Angelita Househil. [address] [facility], [address], [place], [place], [id number], [place]. tel:[phone] Referring Provider: No PCP A.. [facility], [address] [place] [address] [address], [place], [place], [id number], tel:[phone] OPH CONSULT [facility] No Information 4 Angelita Househil. [address], [address], [place], [place], [id number], [place]. tel:[phone] OFFICE/OUTPA TIENT VISIT, [facility], [address] [facility] [address], [place], [place], [id number], tel:[phone] [facility] blurry vision (chief complaint) DM (chief [...] [address], [address], [place], [place], [id number], [place]. tel:[phone] Referring Provider: No PCP A.. Family History Family Member Type Diagnosis Age At Onset Mother Problem Diabetes mellitus Problem No family history of Glaucom a Problem No family history of Macular degeneration Payers Payer name Insurance type Covered constitution party ID Authoryamilea tigucci(s) [facility] Medicare Advantage Ppo CI [id number] Social History Type Description Quantity Date Captured [...] nce of intraocular lens Impression/Plan Related to [place] tochalasis of unspecified eye, unspecified eyelid Impression/Plan [...]
== END 2024-07-29 14:21 | disposition home or self-care (01) ==
LOC: CHSLAB 14:21
PROVIDERS: PCP Family Medicine; Visit Provider Family Medicine
DX: R35.0 Frequency of micturition (principal)
CPT/HCPCS: 87086

== ENCOUNTER 2024-09-01 09:54 | Outpatient (CLI) | payer MEDICARE, SELFPAY ==
[2024-09-01 10:07] LABS: Add Urine Microscopic? YES; Bilirubin Urine Negative (Negative); Blood Urine 1+ (Negative); Glucose Urine UA Negative (Negative); Ketones Urine Negative (Negative); Leukocyte Esterase Ur 3+ (Negative); Nitrate Urine Negative (Negative); Protein Urine Trace (Negative); Specific Grav Ur 1.015 (1.010-1.020); Urobilinogen Urine 0.2 mg/dL (0.2-1.0)
[2024-09-01 10:17] LABS: Appearance Urine Sl Cloudy (Clear); Color Urine Yellow (Yellow)
[2024-09-01 10:18] LABS: Bacteria Urine 1+ /hpf; Squamous Epithelial Cell Urine Rare /hpf (Few); WBC Urine 21-50 /hpf (0-3)
== END 2024-09-01 09:55 | disposition home or self-care (01) ==
LOC: CHSLAB 09:55
PROVIDERS: PCP Nurse Practitioner Family; Visit Provider Nurse Practitioner Family
DX: N39.0 Urinary tract infection, site not specified (principal)
CPT/HCPCS: 81001

== ENCOUNTER 2024-09-02 19:36 | Emergency (ER) | payer MEDICARE, SELFPAY ==
--- NOTE | ~2024-09-02 | XR_ITS ---
CHEST RADIOGRAPH CLINICAL HISTORY: weakness . COMPARISON: None available TECHNIQUE: Single portable view of the chest. FINDINGS Sternal wires and mediastinal clips are identified, the wires are midline and intact. The remainder of the cardiomediastinal silhouette is otherwise unremarkable. Increased interstitial markings are identified bilaterally, findings suggesting mild pulmonary vascul ar congestion. The lungs are otherwise clear. IMPRESSION: Mild pulmonary vascular congestion, without focal infiltrate or effusion. Reviewed, dictated and finalized at location A.
--- NOTE | 2024-09-02 19:44 | ED_ITS ---
HPI - Abdominal Pain General Chief Complaint: Nausea/Vomiting/Diarrhea Stated Complaint: nausea Time Seen by Provider: 09/02/24 19:44 Related Data Home Medications ?Medication ?Instructions ?Recorded ?Confirmed ?Last Taken ?Type aspirin 81 mg tablet,delayed 81 mg PO DAILY 09/20/20 07/13/24 Unknown History release lutein 6 mg tablet 6 mg PO DAILY 11/15/20 07/13/24 Unknown History omega 3-pkf-zhz-fish oil 138 cap PO 11/15/20 07/13/24 Unknown History mg-183 mg-1,000 mg capsule zinc 50 mg tablet 50 mg PO DAILY 11/15/20 07/13/24 Unknown History cholecalciferol (vitamin D3) 125 125 mcg PO DAILY 12/27/21 07/13/24 Unknown History mcg (5,000 unit) capsule Allergies Allergy/AdvReac Type Severity Reaction Status Date / Time alendronate sodium Allergy Intermediate Abdominal Verified 09/02/24 20:05 Pain lisinopril Allergy Intermediate angioedema Verified 09/02/24 20:05 Sulfa (Sulfonamide Allergy Intermediate body pain Verified 09/02/24 20:05 Antibiotics) acetaminophen (From Lortab) Allergy Mild Rash Verified 09/02/24 20:05 codeine Allergy Mild Rash Verified 09/02/24 20:05 hydrocodone (From Lortab) Allergy Mild Rash Verified 09/02/24 20:05 lansoprazole (From Prevacid) Allergy Mild Rash Verified 09/02/24 20:05 propoxyphene (From Darvon) Allergy Mild Rash Verified 09/02/24 20:05 vancomycin Allergy Mild Rash Verified 09/02/24 20:05 Review of Systems 2 Review of Systems: All systems reviewed & are unremarkable except as noted in HPI and below Constitutional: Constitutional: Reports no additional constitutional complaints Eyes: Eyes: Reports no additional eye complaints ENT: Reports system reviewed and no additional complaints, except as documented Cardiovascular: Cardiovascular: Reports no additional cardiovascular complaints Respiratory: Respiratory: Reports no additional respiratory complaints Gastrointestinal: Gastrointestinal: Reports no additional gastrointestinal complaints Genitourinary: Genitourinary: Reports no additional female genitourinary complaints Musculoskeletal: Musculoskeletal: Reports no additional musculoskeletal complaints Integumentary/Breasts: Skin/Breast: Reports system reviewed and no additional complaints, except as docu Neurologic: Reports system reviewed and no additional complaints, except as documented Psychiatric: Psychiatric: Reports no additional psychiatric complaints Endocrine: Endocrine: Reports no additional endocrine complaints Hematologic/Lymphatic: Hematologic/Lymphatic: Reports no additional hematologic/lymphatic complaints Allergic/Immunologic: Allergic/Immunologic: Reports no additional allergic/immunologic complaints PMFSH Past Medical History Medical History Statin intolerance Cataract of left eye 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, managed as type 1 Heart murmur Primary osteoarthritis of left knee Family History Family History Father Hypertension Family history of coronary artery disease Acute myocardial infarction Mother Hypertension Family history of rheumatoid arthritis Family history of diabetes mellitus in first degree relative Family history of coronary artery disease Family history of arthritis Grandparent Family history of malignant neoplasm Other Family history of congenital heart disease Family history of psoriasis Social History Social History Smoking status: Never smoker Alcohol intake: never Exam 2 Const: General: healthy appearing Nutritional Appearance: well nourished Orientation/consciousness: patient oriented x3 Limitations: no limitations HENMT: Head: normal to inspection Ears: external ears normal [place]/Nose/Sinus: Normal external nose present Eyes: Conjunctivae: conjunctivae normal Pupils: Equal, round and reactive pupils present EOM: EOMs intact bilaterally Neck: Neck: normal visual inspection Chest: Chest palpation & inspection: normal inspection of the chest Resp: Effort & Inspection: normal respiratory effort and not labored A uscultation: not clear to auscultation bilaterally, no crackles, rales ( bilateral), no rhonchi, no wheezes, breath sounds present and diminished lung sounds Cardio: Rate: regular rate Rhythm: regular rhythm Heart sounds: no murmurs GI: Inspection: non-distended GI Palp: Yes Soft to palpation and No Tenderness to palpation present (GI) Auscultation: normal bowel sounds : General: Yes bladder normal to palpation Back/Spine/Pelvis: Back: no CVA tenderness Skin: General skin exam: normal color Rashes: no rashes Wounds: no wounds Neuro: General: patient oriented x3, moves all extremities, no meningeal signs, no focal motor deficits and CN's II-XI intact bilaterally Cranial nerves: Yes Nystagmus not present Speech: normal speech Gait exam (Neuro): Normal gait present Extrem: General: normal to inspection Psych: Mental Status: mental status grossly normal Affect: normal affect Attitude: cooperative Course Vital Signs Vital signs: Vital Signs Temperature 36.0 C L 09/02/24 19:53 Pulse Rate 71 09/02/24 19:53 Respiratory Rate 18 09/02/24 19:53 Blood Pressure 166/84 H 09/02/24 19:53 Pulse Oximetry 94 09/02/24 19:53 Oxygen Delivery Room Air 09/02/24 19:53 Temperature 36.0 C L 09/02/24 19:53 Pulse Rate 71 09/02/24 19:53 Respiratory Rate 18 09/02/24 19:53 Blood Pressure 166/84 H 09/02/24 19:53 Pulse Oximetry 94 09/02/24 19:53 Oxygen Delivery Room Air 09/02/24 19:53 MDM - Abdominal Pain MDM Narrative Medical decision making narrative: patient has decided to leave AMA and not be transferred for cardiology evaluation for her new onset CHF. EKG has no acute changes from comparison. The patient is AAO x4 and she has the decision making capability and capacity with reasoning to decide not to go and transfer at this time and go AMA. Her plan is a see a military police officer this week. Her daughter was on the phone and agreed with her plan and was in the room and agreed with the plan too. Lab Data Attestation: I reviewed the patient's lab results. 09/02/24 20:18 09/02/24 20:18 Labs: Lab Results 09/02/24 Range/Units 20:18 WBC 10.8 (4.8-10.8) K/mm3 RBC 5.29 (4.20-5.40) M/mm3 Hgb 15.9 H (11.7-13.8) g/dL Hct 48.6 H (35.0-42.0) % MCV 91.9 (78.0-102.0) fL MCH 30.1 (27.0-31.0) pg MCHC 32.7 (32-36) g/dL RDW 13.6 (11.6-14.4) % Plt Count 143 L (150-420) K/mm3 MPV 12.8 H (9.2-11.8) fl Immature Gran % (Auto) 0.4 H (0.0-0.0) % Neut % (Auto) 89.5 H (50.0-70.0) % Lymph % (Auto) 3.1 L (18.0-42.0) % [place] % (Auto) 6.2 (2.0-11.0) % Eos % (Auto) 0.6 L (1.0-6.0) % Baso % (Auto) 0.2 (0.0-1.0) % Lymph # (Auto) 0.33 L (1.10-4.50) K/mm3 [place] # (Auto) 0.67 (0.10-0.90) K/mm3 Eos # (Auto) 0.06 (0.02-0.50) K/mm3 Baso # (Auto) 0.02 (0.00-0.10) K/mm3 Abs Immat Gran (auto) 0.04 H (0.00-0.00) K/mm3 Absolute Neuts (auto) 9.66 H (1.70-7.20) K/mm3 Absolute Nucleated RBC 0.00 (0.00-0.00) K/mm3 Nucleated RBC % 0.0 (0-0.0) % Sodium 137 (137-145) mmol/L Potassium 3.5 (3.4-5.0) mmol/L Chloride 104 (98-107) mmol/L Carbon Dioxide 25 (22-30) mmol/L Anion Gap 8 (4-12) mmol/L BUN 12 (7-17) mg/dL Creatinine 0.51 L (0.7-1.0) mg/dL Estim Creat Clear Calc Not Reportable Estimated GFR > 60 (59 - ) Glucose 146 H (65-110) mg/dL Calculated Osmolality 286 (285-295) mOsm/kg Lactic Acid 1.5 (0.4-2.0) mmol/L Calcium 9.7 (8.4-10.2) mg/dL Total Bilirubin 1.4 H (0.2-1.3) mg/dL AST 36 (14-36) U/L ALT 29 (6-35) U/L Alkaline Phosphatase 68 (38-126) U/L Troponin I 0.013 (0.000-0.034) ng/mL NT-Pro-B Natriuret Pep 2090 H (19.9-100) pg/mL Total Protein 7.3 (6.3-8.2) g/dL Albumin 4.5 (3.5-5.1) g/dL Urine Color Yellow (Yellow) Urine Appearance Clear (Clear) Urine pH 6.0 (5.0-8.0) Ur Specific [place] 1.015 (1.010-1.020) Urine Protein Negative (Negative) Urine Glucose (UA) Negative (Negative) Urine Ketones 1+ H (Negative) Ur Blood (Man) Negative (Negative) Urine Nitrate Negative (Negative) Urine Bilirubin Negative (Negative) Urine Urobilinogen 0.2 (0.2-1.0) mg/dL Leukocyte Esterase Rfl Trace H (Negative) CARSON/UL Urine WBC 16-20 H (0-3) /hpf Urine WBC Clumps Present H (None) /hpf Ur Squamous Epith Cells Many H (Few) /hpf Amorphous Sediment Moderate H (None) Urine Bacteria 1+ H (None) /hpf Urine Mucus Heavy H /lpf Imaging Data Attestation: I personally reviewed and interpreted this imaging study as follows: Radiologist's impression: ITS Impressions Chest X-Ray 09/02/24 20:56 IMPRESSION: Mild pulmonary vascular congestion, without focal infiltrate or effusion. ECG Data EKG #1: Attestation: I personally reviewed and interpreted this ECG as follows: ECG completion date: 09/02/24 ECG completion time: 22:34 Prior ECG tracings: available for review ( No acute change from prior EKG 2023) normal rate, sinus rhythm, PACs, non-specific ST changes, widened QRS, normal QT and left axis Discharge Plan Discharge Clinical Impression: Acute UTI CHF (congestive heart failure) Qualifiers: Heart failure type: unspecified Heart failure chronicity: acute Qualified Code(s): I50.9 - Heart failure, unspecified Patient Disposition: Left Against Medical Advice Condition: Stable Instructions: Heart Failure (DC) Additional Instructions: Please follow-up with your military police officer as soon as possible with the new onset congestive heart failure. You have decided to leave [place] and not be transferred at this time. Patient Language: Swiss Prescriptions: New cephalexin 500 mg capsule 500 mg PO BID 7 Days Qty: 14 0RF No Action clobetasol 0.05 % gel 1 applic topical BID 14 Days Qty: 60 1RF aspirin 81 mg tablet,delayed release (DR/EC) 81 mg PO DAILY cholecalciferol (vitamin D3) 125 mcg (5,000 unit) capsule 125 mcg PO DAILY famotidine [Acid Operations Controller (famotidine)] 20 mg tablet 20 mg PO BID 30 Days Qty: 60 2RF Eucrisa 2 % ointment 1 applic topical BID Qty: 100 0RF zinc 50 mg tablet 50 mg PO DAILY lutein 6 mg tablet 6 mg PO DAILY Rx Instructions: give with meal/snack omega 4-wcw-tzm-fish oil 138-183-1,000 mg capsule PO ezetimibe 10 mg tablet See Rx Instructions .ROUTE .COMPLEX Qty: 60 5RF Dose Instruction: TAKE 1 TABLET BY MOUTH DAILY Rx Instructions: TAKE 1 TABLET BY MOUTH DAILY alendronate [Fosamax] 70 mg tablet 70 mg PO WEEKLY Qty: 12 3RF nebivolol 10 mg tablet See Rx Instructions .ROUTE .COMPLEX Qty: 90 0RF Dose Instruction: TAKE 1 TABLET BY MOUTH EVERY DAY Rx Instructions: TAKE 1 TABLET BY MOUTH EVERY DAY isosorbide mononitrate 30 mg tablet extended release 24 hr See Rx Instructions .ROUTE .COMPLEX Qty: 30 0RF Dose Instruction: TAKE 1 TABLET BY MOUTH DAILY Rx Instructions: TAKE 1 TABLET BY MOUTH DAILY nitrofurantoin monohyd/m-cryst [Macrobid] 100 mg capsule 100 mg PO Q12H 5 Days Qty: 10 0RF Rx Instructions: must administer with a meal/food Follow-up/Referrals: Kenneth Dsouza DO [Primary Care Provider] - Time of Disposition: 22:13
[2024-09-02 19:53] VITALS: BP 166/84; PULSE 71; RESP 18; TEMP 36; O2SAT 94
--- NOTE | 2024-09-02 19:58 | ECG_ITS ---
Test Date: 2024-09-02 20:22:09 Measurements Intervals [place] Rate: 69 P: 61 AK: 204 QRS: -42 QRSD: 117 T: 120 QT: 426 QTc: 459 Interpretive Statements SINUS RHYTHM LEFT AXIS DEVIATION BORDERLINE AV CONDUCTION DELAY LEFT VENTRICULAR HYPERTROPHY AND ST-T CHANGE CANNOT R/O SEPTAL INFARCT, AGE INDETERMINATE BASELINE ARTIFACT- I, II, III, AVR, V1-V6 ABNORMAL ECG Compared to ECG 12/17/2023 10:57:38 HEART RATE HAS INCREASED Electronically Signed On 09-05-2024 06:27:54 CDT by Chapincito Dunlap D.O.
[2024-09-02 20:41] LABS: Basophils Absolute Auto 0.02 K/mm3 (0.00-0.10); Basophils Percent Auto 0.2 % (0.0-1.0); Eosinophils Absolute Auto 0.06 K/mm3 (0.02-0.50); Eosinophils Percent Auto 0.6 % (1.0-6.0); Hematocrit 48.6 % (35.0-42.0); Hemoglobin 15.9 g/dL (11.7-13.8); Immature Granulocyte Absolute 0.04 K/mm3 (0.00-0.00); Immature Granulocyte Percent A 0.4 % (0.0-0.0); Lymphocytes Absolute Auto 0.33 K/mm3 (1.10-4.50); Lymphocytes Percent Auto 3.1 % (18.0-42.0); Mean Corpuscular HGB Conc 32.7 g/dL (32-36); Mean Corpuscular Hemoglobin 30.1 pg (27.0-31.0); Mean Corpuscular Volume 91.9 fL (78.0-102.0); Mean Platelet Volume 12.8 fl (9.2-11.8); Monocytes Absolute Auto 0.67 K/mm3 (0.10-0.90); Monocytes Percent Auto 6.2 % (2.0-11.0); Neutrophils Absolute Auto 9.66 K/mm3 (1.70-7.20); Neutrophils Percent Auto 89.5 % (50.0-70.0); Platelet Count Result 143 K/mm3 (150-420); Red Blood Count 5.29 M/mm3 (4.20-5.40); Red Cell Distribution Width 13.6 % (11.6-14.4); White Blood Count 10.8 K/mm3 (4.8-10.8)
--- NOTE | 2024-09-02 20:45 | PC.NURSE ---
patient awake and alert, ambulatory to bathroom without difficulty.
[2024-09-02 20:49] LABS: Alanine Aminotransferase 29 U/L (6-35); Albumin Level 4.5 g/dL (3.5-5.1); Alkaline Phosphatase 68 U/L (38-126); Anion Gap 8 mmol/L (4-12); Aspartate Amino Transferase 36 U/L (14-36); Bilirubin,Total 1.4 mg/dL (0.2-1.3); Blood Urea Nitrogen 12 mg/dL (7-17); Calcium 9.7 mg/dL (8.4-10.2); Carbon Dioxide 25 mmol/L (22-30); Chloride 104 mmol/L (98-107); Estimated Glomerular Filt Rate > 60; Glucose 146 mg/dL (65-110); Osmolality Calculated 286 mOsm/kg (285-295); Potassium 3.5 mmol/L (3.4-5.0); Sodium 137 mmol/L (137-145); Total Protein 7.3 g/dL (6.3-8.2)
[2024-09-02 20:50] LABS: Lactic Acid Reflex 1.5 mmol/L (0.4-2.0)
[2024-09-02 21:00] LABS: NT Pro B Type Natriuretic Pept 2090 pg/mL (19.9-100); Troponin I 0.013 ng/mL (0.000-0.034)
[2024-09-02 21:14] LABS: Add Urine Microscopic? YES; Appearance Urine Clear (Clear); Bilirubin Urine Negative (Negative); Blood Urine Negative (Negative); Color Urine Yellow (Yellow); Glucose Urine UA Negative (Negative); Ketones Urine 1+ (Negative); Leukocyte Esterase Ur Trace LEU/UL (Negative); Nitrate Urine Negative (Negative); Protein Urine Negative (Negative); Specific Grav Ur 1.015 (1.010-1.020); Urobilinogen Urine 0.2 mg/dL (0.2-1.0)
--- NOTE | 2024-09-02 21:21 | PC.NURSE ---
patient awake and alert resting on stretcher speaking on her cell phone at this time without distress. patient asks RN how much longer? update provided including awaiting results of urinalysis then ERP will be down to speak with them regarding all results and plan of care.
[2024-09-02 21:30] LABS: Amorphous Sediment Urine Moderate; Bacteria Urine 1+ /hpf; Mucus Urine Heavy /lpf; Squamous Epithelial Cell Urine Many /hpf (Few); WBC Clumps Urine Present /hpf; WBC Urine 16-20 /hpf (0-3)
[2024-09-02 22:00] VITALS: BP 107/80; PULSE 78; RESP 18; TEMP 37.9; O2SAT 95
[2024-09-02] MEDS: FUROSEMIDE 20 MG TABLET (22:43)
[2024-09-02] MEDS: cefTRIAXone 1 GM, LIDOCAINE 1% LOCAL INJ 2.1 ML IM (22:45)
--- NOTE | 2024-09-05 12:59 | PC.NURSE ---
blood culture, preliminary, no growth.
--- NOTE | 2024-09-09 16:43 | PC.NURSE ---
BLOOD CULTURE FINAL NO GROWTH
== END 2024-09-02 22:56 | disposition left against medical advice (07) ==
PROVIDERS: Emergency Provider Emergency Medicine; PCP Family Medicine
DX: N39.0 Urinary tract infection, site not specified (principal); I50.9 Heart failure, unspecified; I25.10 Atherosclerotic heart disease of native coronary artery without angina pectoris; E13.9 Other specified diabetes mellitus without complications
CPT/HCPCS: 36415; 71045; 80053; 81001; 83605; 83880; 84484; 85025; 87040; 93005; 96372; 99284; A9270; J0696; J2003

== ENCOUNTER 2024-09-27 15:59 | Outpatient (NON) | payer MEDICARE, SELFPAY ==
--- OUTSIDE RECORDS SUMMARY | 2024-09-27 16:02 | XMS_ITS | Encounter Summary ---
Author Organization [facility] Address [address] [place] [address] Care Team Providers Care Retail Sales Associate Seasonal Name Role Phone Kenneth Dsouza DO Primary Care Provider [phone] Reason for Referral * Radiology Services (Routine) - Closed Specialty Diagnoses / Procedures Referred By Contac t Referred To Contact Cardiology Diagnoses CAD in [place] artery Hx of CABG Procedures NM [place] [address] [place] [address] Phone: tel: fax: Referral ID Status Reason Start Date Expiration Date Visits Re quested Visits Authorized [id number] Closed 09/08/2024 09/08/2025 1 1 Reason for Visit * Radiology Services (Routine) - Closed Specialty Diagnoses / Procedures Referred By Contwilliam t Referred To Contact Cardiology Diagnoses CAD in [place] artery Hx of CABG Procedures [place] [address] [place] [address] Phone: tel: fax: Referral ID Status Reason Start Date Expiration Date Visits Re quested Visits Authorized [id number] Closed 09/08/2024 09/08/2025 1 1 Encounter Details Date Type Department Care Team (Late st Contact Info) Description 09/22/2024 8:48 AM CDT Hospital Encounter [facility] - Nuclearn Medicine [address] [place] [address] [place] [address] [place] [address] Social History Tobacco Use Types Packs/Day Years Used Date Smoking Tobacco: Never Smokeless Tobacco: Never Comments Unknown Sex and Gender Information Value Date Recorded Sex Assigned at Female 01/10/2021 12:07 PM CDT Legal Sex Female 3:19 PM CDT Gender Identity Female 01/10/2021 12:07 PM CDT Sexual Orientation Not on file documented as of this encounter Plan of Treatment Not on file documented as of this encounter Procedures Procedure Name Priority Date/Time Associated Diagnosis Comments NM MYOCARD PERF REST STRESS Routine 09/22/2024 2:03 PM CDT CAD in [place] artery Hx of CABG documented in this encounter Results * NM MYOCARD PERF REST STRESS (09/22/2024 2:03 PM CDT) Anatomical Region Laterality Modality Chest Nuclear Medicine 09/22/2024 2:12 PM CDT Impressions 09/22/2024 2:14 PM CDT IMPRESSION: NO SCINTIGRAPHIC EVIDENCE OF PHARMACOLOGICALLY INDUCED MYOCARDIAL ISCHEMIA. > Interpreting Provider: Clinton Oliva MD on 09/22/2024 2:14 PM Narrative 09/22/2024 2:14 PM CDT PROCEDURE: NM MYOCARD PERF REST STRESS DATE/TIME OF EXAM: 09/22/2024 2:04 PM CLINICAL INFORMATION: None relevant/not provided if blank. Indication: I25.10: CAD in [place] artery Z95.1: Hx of CABG Radiopharmaceuticals: 33 mCi Tc-99m Myoview and 10 mCi Tc-99m Myoview IV. TECHNIQUE: An intravenous infusion of Lexiscan was performed. At peak effect of the drug, technetium 99m Myoview view was administered intravenously, and thereafter standard myocardial perfusion images were obtained. Resting images were also obtained. FINDINGS: There is a normal distribution of uptake throughout the left ventricular myocardium on both the pharmacologic stress as well as resting images. No fixed or reversible areas are seen in the left ventricular myocardium to suggest infarct or ischemia. The left ventricular ejection fraction is estimated at 63% with no wall motion abnormalities identified. Procedure Note Clinton Oliva MD - 09/22/2024 PROCEDURE: NM MYOCARD PERF REST STRESS DATE/TIME OF EXAM: 09/22/2024 2:04 PM CLINICAL INFORMATION: None relevant/not provided if blank. Indication: I25.10: CAD in [place] artery Z95.1: Hx of CABG Radiopharmaceuticals: 33 mCi Tc-99m Myoview and 10 mCi Tc-99m MyoviewIV. TECHNIQUE: An intravenous infusion of Lexiscan was performed. At peak effect of the drug, technetium 99m Myoview view was administered intravenously, and thereafter standard myocardial perfusion images were obtained. Resting images were also obtained. FINDINGS: There is a normal distribution of uptake throughout the left ventricular myocardium on both the pharmacologic stress as well as resting images.No fixed or reversible areas are seen in the left ventricular myocardium to suggest infarct or ischemia. The left ventricular ejection fraction is estimated at 63% with no wall motion abnormalities identified. IMPRESSION: NO SCINTIGRAPHIC EVIDENCE OF PHARMACOLOGICALLY INDUCED MYOCARDIALISCHEMIA. > Interpreting Provider: Clinton Oliva MD on 09/22/2024 2:14 PM Gm Sawyer MD NM ORDERABLES Final Result documented in this encounter Visit Diagnoses Diagnosis CAD in [place] artery Coronary atherosclerosis of [place] coronary artery Hx of CABG Postsurgical aortocoronary bypass status documented in this encounter Care Teams Retail Sales Associate Seasonal Relationship Specialty Start Date End Date Kenneth Dsouza DO [address] [place] [id number] PCP - General Family Medicine 07/16/22 documented as of this encounter
--- OUTSIDE RECORDS SUMMARY | 2024-09-27 16:02 | XMS_ITS | Clinical Summary ---
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 Based on machine cross-calibration and [...] by the International Society of Clinical Densitometry. [id number] Lainey Funes MD IMG DXA PROCEDURES Final Re sult from Last 3 Months or Most Recently Relevant to Health Maintenance Insurance [facility] MEDICARE ADVANTAGE [facility] Address: [address] [place], [place] [id number] [facility] MEDICARE ADVANTAGE [facility] Address: [address] [place] [phone] Care Teams Medical Sales Consultant Relationship Specialty Start Date End Date Kenneth Dsouza DO [address] [place] [address] PCP - General Family Medicine 07/07/22
--- OUTSIDE RECORDS SUMMARY | 2024-09-27 16:02 | XMS_ITS | Referral Summary ---
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 Based on machine cross-calibration and [...] by the International Society of Clinical Densitometry. [id number] Lainey Funes MD IMG DXA PROCEDURES Final Re sult from Last 3 Months or Most Recently Relevant to Health Maintenance Insurance [facility] MEDICARE ADVANTAGE [facility] Address: [address] [address] [place] [address] [facility] MEDICARE ADVANTAGE [facility] Address: [address] [address] [place] [address] Care Teams Purchasing Assistant Relationship Specialty Start Date End Date Kenneth Dsouza DO [address] [place] [address] PCP - General Family Medicine 07/07/22
--- OUTSIDE RECORDS SUMMARY | 2024-09-27 16:02 | XMS_ITS | Clinical Summary ---
Author Organization [facility] Address [address] [facility] [place] [address] Care Team Providers Care Global Marketing Specialist Name Role Phone LiannaRosa Iselasteffi JONES Primary Care Provider [phone] Source Comments [facility],non-[facility] Affiliates and Associated Physician Practices is amultiple site organization consisting of ambulatory clinics and hospital sitesin [place], [place], [place] and [place]. This disclosure is being madepursuant to the Care Everywhere program and may not contain all information available regarding this patient. Last updated 17.[facility] Allergies Active Allergy Reactions Criticality Noted Date [...] A DAY FOR 4 WEEKS AFTER SURGERY 04/23/19 24 Active ofloxacin (Ocuflox) 0.3 % ophthalmic solution INSTILL 1 DROP INTO RIGHT EYE 4 TIMES A DAY FOR 1 WEEK AFTER SURGERY 04/23/19 24 Active isosorbide mononitrate CR 24hr (Imdur) 30 MG tablet TAKE 1 TABLET BY MOUTH ONCE DAILY 90 tablet 3 09/09/19 25 Active ezetimibe (Zetia) 10 MG tablet TAKE 1 TABLET BY MOUTH ONCE DAILY 90 tablet 3 09/09/19 25 Active nebivolol (Bystolic) 10 MG tablet Take 1 (one) tablet by mouth once daily 90 tablet 5 09/09/19 25 Active isosorbide mononitrate CR 24hr (Imdur) 30 MG tablet Take 1 (one) tablet by mouth once daily 90 tablet 3 09/09/19 24 025 Discontinued nebivolol (Bystolic) 10 MG tablet TAKE 1 TABLET BY MOUTH EVERY DAY 90 tablet 3 10/14/19 24 025 Discontinued(Re order) ezetimibe (Zetia) 10 MG tablet TAKE 1 TABLET BY MOUTH EVERY DAY 90 tablet 3 10/14/19 24 025 Discontinued Active Problems No known active problems Encounters Date Type Department Care Team Description 09/22/2024 10:09 AM CDT - 09/22/2024 11:59 PM CDT Hospital Encounter [facility] [address] [place] [address] Gm Sawyer MD Discharge Disposition: Home or Self Care 09/22/2024 8:48 AM CDT Hospital Encounter [facility] [address] [place] [address] Gm Sawyer MD 09/22/2024 8:19 AM CDT - 09/22/2024 8:47 AM CDT Hospital Encounter [facility] [address] [place] [address] Gm Sawyer MD Discharge Disposition: Home or Self Care 09/13/2024 Travel 09/08/2024 10:20 AM CDT Office Visit [facility] [address], [address] [place] [address] Gm Sawyer MD 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); Hx of CABG 09/08/2024 Travel 09/07/2024 Refill [facility] [address], [place] [address] Gm Sawyer MD Refill Request from Last 3 Months Social History Tobacco [...] Sign Reading Time Taken Comments Blood Pressure 159/78 09/08/2024 10:01 AM CDT Pulse 54 09/08/2024 10:01 AM CDT Temperature - - Respiratory Rate 16 06/10/2021 1:55 PM CDT Oxygen Saturation 96% 09/09/2023 2:45 PM CDT Inhaled Oxygen Concentration - - Weight 64.9 kg (143 lb) 09/22/2024 8:33 AM CDT Height 151.1 cm (4' 11.5) 09/22/2024 8:33 AM CD T Body Mass Index 28.4 09/22/2024 8:33 AM CDT Plan of Treatment Health Maintenance Due [...] MEDICARE AWV CALENDAR YEAR 2024 INFLUENZA VACCINE (#1) 2024 BONE DENSITY TESTING Completed 07/16/2022 HEPATITIS [...] Routine 09/22/2024 2:03 PM CDT CAD in kenaitze artery Hx of CABG ECHO COMPLETE Routine 09/22/2024 12:06 PM CDT Coronary artery disease involving coronary bypass graft of kenaitze heart, unspecified whether angina present STRESS TEST Routine 09/22/2024 10:21 AM CDT CAD in kenaitze artery Hx of CABG from Last 3 Months Results * NM MYOCARD PERF REST STRESS [...] provided if blank. Indication: I25.10: CAD in kenaitze artery Z95.1: Hx of CABG [employer]: 33 [...] provided if blank. Indication: I25.10: CAD in kenaitze artery Z95.1: Hx of CABG [employer]: 33 [...] Clinton Oliva MD on 09/22/2024 2:14 PM us Gm Sawyer MD NM ORDERABLES Final Result * ECHO COMPLETE (09/22/2024 12:06 PM CDT) IVSd 2D 1.19 cm [facility] FUJ I PACS LVIDd 5.376 cm [facility] CV FUJ I PACS LVIDs 3.472 cm [facility] FU[facility] I PACS LVOT diam 1.968 cm [facility] FUJ I PACS LVPWd 1.056 cm [facility] FUJ I PACS LV biplane EF 68.817 % [facility] CV FUJI PACS LV A2C EF 69.819 % [facility] CV FUJ I PACS LV A4C EF 67.601 % [facility] CV FUJ I PACS LV EDV A2C 90.693 ml [facility] CV FU JI PACS LV EDV A4C 59.278 ml [facility] CV FU JI PACS LV ESV A2C 27.373 ml [facility] CV FU JI PACS LV ESV A4C 19.205 ml [facility] CV FU JI PACS LVOT pk grad 4.106 mmHg [facility] CV FUJI PACS LVOT pk dallsa 101.32 cm/s [facility] CV F UJI PACS LVOT VTI 25.057 cm [facility] CV FUJ I PACS RVIDd 4.025 cm [facility] CV FUJ I PACS RA area 18.522 cm [facility] CV FUJI PACS AV area pk dallas 2.107 cm [facility] CV FUJI PACS AV area cont VTI 2.456 cm [facility] CV FUJI PACS AR DECEL TIME 2.05 s [facility] CV FUJI PACS AV PHT 0.594 s [facility] CV FUJ I PACS AV pk [place] regurg 475.749 cm/s [facility] CV FUJI PACS AV pk grad 8.566 mmHg [facility] CV FU JI PACS AV mn grad 3.884 mmHg [facility] CV FU JI PACS AV pk [place] 146.336 cm/s [facility] CV FUJ I PACS AV VTI 31.043 cm [facility] CV FUJ I PACS MV A pk [place] 73.666 cm/s SSM CV F UJI PACS MV E pk [place] 52.424 cm/s SSM CV F UJI PACS MV E' lateral d[place] 6.833 cm/s SS M CV FUJI PACS PV pk [place] 91.818 cm/s [facility] CV FUJ I PACS TAPSE 1.614 cm [facility] CV FUJ I PACS TR pk [place] 324.17 cm/s [facility] CV FUJ I PACS Ascending aorta 3.686 cm [facility] CV FUJI PACS IVC Diam Expiration 1.738 cm [facility] CV FUJI PACS AV area index 1.464 cm /m [facility] CV FUJI PACS Dimensionless Index 0.807 unitless [facility] CV FUJI PACS Myocardial strain charge 2 unitless [facility] CV FUJI PACS Anatomical Region Laterality Modality Ultrasound 09/22/2024 10:1 8 AM CDT Narrative 09/22/2024 12:25 PM CDT Summary * The left ventricle is normal in size, with normal systolic function and an estimated ejection fraction of 69 % by biplane method of disks. Left ventricular wall motion is normal. * There is mildly increased left ventricular wall thickness. * The left ventricular diastolic function is consistent with grade I diastolic dysfunction and normal left atrial filling pressure. * Right ventricle is normal in size with normal systolic function. * The pulmonary artery systolic pressure is mildly elevated, 45 mmHg. * The left atrium is mildly dilated. * There is mild aortic valve regurgitation. * There is mild mitral valve regurgitation. Patient Info Name: Opal Diaz Age: 79 years : 1945 Gender: Female Ht: 60 in Wt: 143 lb BSA: 1.68 m2 BP: 135 / 102 mmHg Exam Date: 09/22/2024 10:18 AM Patient Status: O/P Study Site: [facility] Primary Location: [facility] EStudy Info Technical Quality: Adequate Exam Type: ECHO COMPLETE Indications I25.810 - Coronary artery disease involving coronary bypass graft of kenaitze heart, unspecified whether angina present Procedure(s) * A complete 2D, color Doppler, spectral Doppler, and M-Mode transthoracic echocardiogram was performed. Staff Referring Physician: Gm Sawyer Ordering Provider: Gm Sawyer Attending Physician: Gm Sawyer Liquid Hydrogen Plant Operator: Kayleigh Taylor [facility] Left Ventricle The left ventricle is normal in size. There is mildly increased left ventricular wall thickness. Left ventricular systolic function is normal with an estimated ejection fraction of 69 % by biplane method of disks. The left ventricular mass is normal. Left ventricular segmental wall motion is normal. The left ventricular diastolic function is consistent with grade I diastolic dysfunction and normal left atrial filling pressure. Right Ventricle The right ventricle is normal in size. Right ventricular systolic function is normal. Left Atrium The left atrium is mildly dilated. Right Atrium The right atrium is normal in size. Atrial Septum Intact interatrial septum visualized by 2D and color Doppler imaging. Aortic Valve The aortic valve is trileaflet. There is no aortic valve stenosis. There is mild aortic valve regurgitation. Pulmonic Valve The pulmonic valve is normal. There is no pulmonic valve stenosis. There is no pulmonic regurgitation. Mitral Valve The mitral valve is normal. There is no mitral valve stenosis. There is mild mitral valve regurgitation. Tricuspid Valve The tricuspid valve is normal. There is no tricuspid valve regurgitation. The pulmonary artery systolic pressure is mildly elevated, 45 mmHg. Inferior Vena Cava The inferior vena cava is normal in size (< 2.1 cm). There is < 50% collapse of the IVC upon inspiration with an estimated right atrial pressure of 3 mmHg. Pericardium/Pleural There is no pericardial effusion. Aorta The aortic root at the sinus of Valsalva is normal in size. The ascending aorta is normal in size. Measurements Left Ventricular Outflow Tract Name Value Normal LVOT 2D LVOT Diameter 2.0 cm LVOT Area 3.0 cm2 LVOT Doppler LVOT Peak Velocity 1.0 m/s LVOT Peak Gradient 4 mmHg LVOT Mean Velocity 64.55 cm/s LVOT Mean Gradient 2 mmHg LVOT VTI 25.1 cm LVOT VTI/AV VTI Ratio 0.8 LVOT Stroke Volume 76 ml LVOT Stroke Volume Index 45 ml/m2 35-58 Pulmonic Valve Name Value Normal PV Doppler PV Peak Velocity 0.9 m/s PV Peak Gradient 3 mmHg PV Regurgitation Doppler IL End Diastolic Gradient 7 mmHg Mitral Valve Name Value Normal MV Diastolic Function MV E Peak Velocity 0.5 m/sec MV A Peak Velocity 0.7 m/sec MV E/A 0.7 MV Decel Time (PW) 455 ms MV Annular TDI MV Septal e' Velocity 4 cm/s >=8 MV E/e' (Septal) 15 <=8 MV Lateral e' Velocity 7 cm/s >=10 MV E/e' (Lateral) 8 <=8 MV e' Average 5 cm/s MV E/e' (Average) 11 Tricuspid Valve Name Value Normal TV Regurgitation Doppler TR Peak Velocity 3.2 m/s TR Peak Gradient 42 mmHg Estimated PAP/RSVP RA Pressure 3 mmHg <=5 PA Systolic Pressure 45 mmHg <35 RV Systolic Pressure 45 mmHg <36 TV Annular TDI TV Lateral Rosa s' Velocity 13 cm/s 10-19 Pulmonary Vessels Name Value Normal Pulmonary Artery Doppler PA End Diastolic Pressure for IL 10 mmHg Aorta Name Value Normal Ascending Aorta Asc Ao Diameter 3.7 cm 1.9-3.5 Asc Ao Diameter Index 2.2 cm/m2 1.0-2.2 Venous Name Value Normal IVC/SVC IVC Diameter 1.7 cm <=2.1 Aortic Valve Name Value Normal AV Doppler AV Peak Velocity 1.46 m/s AV Peak Gradient 9 mmHg AV Mean Gradient 4 mmHg AV VTI 31 cm AV Area (Cont Eq VTI) 2.46 cm2 >=2.00 AV Area (Cont Eq Dallas) 2.11 cm2 AV DI (VTI) 0.81 AV DI ([place]) 0.69 AV Regurgitation 2D LVOT Area 3.04 cm2 AV Regurgitation Doppler AR Decel Time 2,050 ms AR PHT 594 ms Ventricles Name Value Normal LV Dimensions 2D/MM IVS Diastolic Thickness (2D) 1.2 cm 0.6-0.9 LVID Diastole (2D) 5.4 cm 3.8-5.2 LVPW Diastolic Thickness (2D) 1.1 cm 0.6-0.9 LVID Systole (2D) 3.5 cm 2.2-3.5 LV Mass (2D Cubed) 240 g 67-162 LV Mass Index (2D Cubed) 143 g/m2 43-95 Relative Wall Thickness (2D) 0.39 <=0.42 LV Fractional Shortening/Ejection Fraction 2D/MM LV Fractional Shortening (2D) 35 % 27-45 LV EF (2D Teicholz) 64 % 54-74 LV Diastolic Volume (4C MOD) 59 ml LV EF (4C MOD) 68 % LV Diastolic Volume (2C MOD) 91 ml LV EF (2C MOD) 70 % LV Diastolic Volume (BP MOD) 75 ml 46-106 LV Diastolic Volume Index (BP MOD) 45 ml/m2 29-61 LV Systolic Volume (BP MOD) 23 ml 14-42 LV Systolic Volume Index (BP MOD) 14 ml/m2 8-24 LV EF (BP MOD) 69 % 54-74 LV Diastolic Length (4C) 6.3 cm LV Systolic Length (4C) 5.8 cm LV Stroke Volume (4C MOD) 40 ml RV Dimensions 2D/MM RVID Diastole (2D) 4.0 cm 2.5-3.5 TAPSE 1.6 cm >=1.7 Atria Name Value Normal LA Dimensions LA Volume Index (BP A-L) 46 ml/m2 16-34 RA Dimensions RA Area (4C) 19 cm2 <=18 RA Area (4C) Index 11 cm2/m2 RA ESV (4C MOD) 49 ml 15-27 RA ESV Index (4C MOD) 29 ml/m2 16-34 Report Signatures Finalized by Abel De La Garza on 09/22/2024 12:25 PM Procedure Note Abel De La Garza MD - 09/22/2024 Summary * The left ventricle is normal in size, with normal systolic functionand an estimated ejection fraction of 69 % by biplane method of disks. Left ventricular wall motion is normal. * There is mildly increased left ventricular wall thickness. * The left ventricular diastolic function is consistent with grade I diastolic dysfunction and normal left atrial filling pressure. * Right ventricle is normal in size with normal systolic function. * The pulmonary artery systolic pressure is mildly elevated, 45 mmHg. * The left atrium is mildly dilated. * There is mild aortic valve regurgitation. * There is mild mitral valve regurgitation. Patient Info Name: Opal Diaz Age: 79 years : 1945 Gender: Female Ht: 60 in Wt: 143 lb BSA: 1.68 m2 BP: 135 / 102 mmHg Exam Date: 09/22/2024 10:18 AM Patient Status: O/P Study Site: [facility] Primary Location: [facility] EStudy Info Technical Quality: Adequate Exam Type: ECHO COMPLETE Indications I25.810 - Coronary artery disease involving coronary bypass graft of kenaitze heart, unspecified whether angina present Procedure(s) * A complete 2D, color Doppler, spectral Doppler, and M-Modetransthoracic echocardiogram was performed. Staff Referring Physician: Gm Sawyer Ordering Provider: Gm Sawyer Attending Physician: Gm Sawyer Liquid [employer] Plant Operator: Kayleigh Taylor [facility] Left Ventricle The left ventricle is normal in size. There is mildly increased left ventricular wall thickness. Left ventricular systolic function is normalwith an estimated ejection fraction of 69 % by biplane method of disks. Theleft ventricular mass is normal. Left ventricular segmental wall motion isnormal. The left ventricular diastolic function is consistent with grade Idiastolic dysfunction and normal left atrial filling pressure. Right Ventricle The right ventricle is normal in size. Right ventricular systolicfunction is normal. Left Atrium The left atrium is mildly dilated. Right Atrium The right atrium is normal in size. Atrial Septum Intact interatrial septum visualized by 2D and color Doppler imaging. Aortic Valve The aortic valve is trileaflet. There is no aortic valve stenosis. Thereis mild aortic valve regurgitation. Pulmonic Valve The pulmonic valve is normal. There is no pulmonic valve stenosis. Thereis no pulmonic regurgitation. Mitral Valve The mitral valve is normal. There is no mitral valve stenosis. There ismild mitral valve regurgitation. Tricuspid Valve The tricuspid valve is normal. There is no tricuspid valveregurgitation. The pulmonary artery systolic pressure is mildly elevated, 45 mmHg. Inferior Vena Cava The inferior vena cava is normal in size (< 2.1 cm). There is < 50%collapse of the IVC upon inspiration with an estimated right atrial pressure of 3mmHg. Pericardium/Pleural There is no pericardial effusion. Aorta The aortic root at the sinus of Valsalva is normal in size. Theascending aorta is normal in size. Measurements Left Ventricular Outflow Tract Name Value Normal LVOT 2D LVOT Diameter 2.0 cm LVOT Area 3.0 cm2 LVOT Doppler LVOT Peak Velocity 1.0 m/s LVOT Peak Gradient 4 mmHg LVOT Mean Velocity 64.55 cm/s LVOT Mean Gradient 2 mmHg LVOT VTI 25.1 cm LVOT VTI/AV VTI Ratio 0.8 LVOT Stroke Volume 76 ml LVOT Stroke Volume Index 45 ml/m2 35-58 Pulmonic Valve Name Value Normal PV Doppler PV Peak Velocity 0.9 m/s PV Peak Gradient 3 mmHg PV Regurgitation Doppler IL End Diastolic Gradient 7 mmHg Mitral Valve Name Value Normal MV Diastolic Function MV E Peak Velocity 0.5 m/sec MV A Peak Velocity 0.7 m/sec MV E/A 0.7 MV Decel Time (PW) 455 ms MV Annular TDI MV Septal e' Velocity 4 cm/s >=8 MV E/e' (Septal) 15 <=8 MV Lateral e' Velocity 7 cm/s >=10 MV E/e' (Lateral) 8 <=8 MV e' Average 5 cm/s MV E/e' (Average) 11 Tricuspid Valve Name Value Normal TV Regurgitation Doppler TR Peak Velocity 3.2 m/s TR Peak Gradient 42 mmHg Estimated PAP/RSVP RA Pressure 3 mmHg <=5 PA Systolic Pressure 45 mmHg <35 RV Systolic Pressure 45 mmHg <36 TV Annular TDI TV Lateral Rosa s' Velocity 13 cm/s 10-19 Pulmonary Vessels Name Value Normal Pulmonary Artery Doppler PA End Diastolic Pressure for [place] 10 mmHg Aorta Name Value Normal Ascending Aorta Asc Ao Diameter 3.7 cm 1.9-3.5 Asc Ao Diameter Index 2.2 cm/m2 1.0-2.2 Venous Name Value Normal IVC/SVC IVC Diameter 1.7 cm <=2.1 Aortic Valve Name Value Normal AV Doppler AV Peak Velocity 1.46 m/s AV Peak Gradient 9 mmHg AV Mean Gradient 4 mmHg AV VTI 31 cm AV Area (Cont Eq VTI) 2.46 cm2 >=2.00 AV Area (Cont Eq [place]) 2.11 cm2 AV DI (VTI) 0.81 AV DI ([place]) 0.69 AV Regurgitation 2D LVOT Area 3.04 cm2 AV Regurgitation Doppler AR Decel Time 2,050 ms AR PHT 594 ms Ventricles Name Value Normal LV Dimensions 2D/MM IVS Diastolic Thickness (2D) 1.2 cm 0.6-0.9 LVID Diastole (2D) 5.4 cm 3.8-5.2 LVPW Diastolic Thickness (2D) 1.1 cm 0.6-0.9 LVID Systole (2D) 3.5 cm 2.2-3.5 LV Mass (2D Cubed) 240 g 67-162 LV Mass Index (2D Cubed) 143 g/m2 43-95 Relative Wall Thickness (2D) 0.39 <=0.42 LV Fractional Shortening/Ejection Fraction 2D/MM LV Fractional Shortening (2D) 35 % 27-45 LV EF (2D Teicholz) 64 % 54-74 LV Diastolic Volume (4C MOD) 59 ml LV EF (4C MOD) 68 % LV Diastolic Volume (2C MOD) 91 ml LV EF (2C MOD) 70 % LV Diastolic Volume (BP MOD) 75 ml 46-106 LV Diastolic Volume Index (BP MOD) 45 ml/m2 29-61 LV Systolic Volume (BP MOD) 23 ml 14-42 LV Systolic Volume Index (BP MOD) 14 ml/m2 8-24 LV EF (BP MOD) 69 % 54-74 LV Diastolic Length (4C) 6.3 cm LV Systolic Length (4C) 5.8 cm LV Stroke Volume (4C MOD) 40 ml RV Dimensions 2D/MM RVID Diastole (2D) 4.0 cm 2.5-3.5 TAPSE 1.6 cm >=1.7 Atria Name Value Normal LA Dimensions LA Volume Index (BP A-L) 46 ml/m2 16-34 RA Dimensions RA Area (4C) 19 cm2 <=18 RA Area (4C) Index 11 cm2/m2 RA ESV (4C MOD) 49 ml 15-27 RA ESV Index (4C MOD) 29 ml/m2 16-34 Report Signatures Finalized by Abel De La Garza on 09/22/2024 12:25 PM us Gm Sawyer MD ECHO CUPID Final Result * STRESS TEST Pharm-Lexiscan (Regadenoson) (09/22/2024 10:21 AM CDT) Anatomical Region Laterality Modality Cardiac Electrop hysiology 09/22/2024 8:30 AM CDT Narrative 09/22/2024 2:41 PM CDT Patient Info Name: Opal Diaz Age: 79 years : 1945 Gender: Female Ht: 59 in Wt: 143 lb BSA: 1.67 m2 HR: 50 bpm BP: 162 / 67 mmHg Heart Rhythm: Bradycardia, Indeterminate, 1st Degree AV Block Exam Date: 09/22/2024 8:30 AM Patient Status: O/P Study Site: [facility] Primary Location: [facility] EStudy Info Exam Type: STRESS TEST Indications I25.10 - CAD in kenaitze artery Z95.1 - Hx of CABG Procedure(s) * Pharmacological stress test was performed. Staff Referring Physician: Gm Sawyer Ordering Provider: Gm Sawyer Attending Physician: Gm Sawyer Nurse: Carrie Ma Exercise Physician: Abel De La Garza Nurse: Rupa Wakefield Summary * Nuclear test results to follow. * Frequent PVCs. * Stress ECG is negative for ischemia. Protocol: Regadenoson Stress ECG Details Stage: Rest Duration (min): --- HR (bpm): 50 SBP (mmHg): 162 DBP (mmHg): 67 Stage: 1 Duration (min): --- HR (bpm): 63 SBP (mmHg): 186 DBP (mmHg): 84 Symptoms: Shortness of breath Comments: frequent pvc's, pac's Stage: 2 Duration (min): --- HR (bpm): 71 SBP (mmHg): 172 DBP (mmHg): 69 Stage: 3 Duration (min): --- HR (bpm): 67 SBP (mmHg): 191 DBP (mmHg): 73 Stage: 4 Duration (min): --- HR (bpm): 70 SBP (mmHg): 202 DBP (mmHg): 80 Cardiac Symptoms: Shortness of breath Resting ECG bradycardia, 1st degree AVB, left anterior fascicular block, possible left ventricular hypertrophy. prior septal infarct. Stress ECG Stress ECG is negative for ischemia. Arrhythmias Occasional PACs at rest. Frequent PVCs. Termination Reason: Protocol completed Heart Rate Response : Resting HR (bpm): 50 : Peak HR (bpm): 72 : Max Predicted HR (bpm): 139 : % of Max Predicted HR: 52 % : Target HR (bpm): 118 Blood Pressure Response : Rest Sys. BP (mmHg): 162 : Rest Diast. BP (mmHg): 67 : Peak Sys. BP (mmHg): 202 : Peak Weathers. BP (mmHg): 80 : Max Rate Pressure Product (bpm*mmHg): 14,544 Medication Regadenoson Dose: 0.4 mg Report Signatures Finalized by Abel De La Garza on 09/22/2024 02:41 PM Procedure Note Abel De La Garza MD - 09/22/2024 Patient Info Name: Opal Diaz Age: 79 years : 1945 Gender: Female Ht: 59 in Wt: 143 lb BSA: 1.67 m2 HR: 50 bpm BP: 162 / 67 mmHg Heart Rhythm: Bradycardia, Indeterminate, 1st Degree AV Block Exam Date: 09/22/2024 8:30 AM Patient Status: O/P Study Site: [facility] Primary Location: [facility] EStudy Info Exam Type: STRESS TEST Indications I25.10 - CAD in kenaitze artery Z95.1 - Hx of CABG Procedure(s) * Pharmacological stress test was performed. Staff Referring Physician: Gm Sawyer Ordering Provider: Gm Sawyer Attending Physician: Gm Sawyer Nurse: Carrie Ma Exercise Physician: Abel De La Garza Nurse: Rupa Wakefield Summary * Nuclear test results to follow. * Frequent PVCs. * Stress ECG is negative for ischemia. Protocol: Regadenoson Stress ECG Details Stage: Rest Duration (min): --- HR (bpm): 50 SBP (mmHg): 162 DBP (mmHg): 67 Stage: 1 Duration (min): --- HR (bpm): 63 SBP (mmHg): 186 DBP (mmHg): 84 Symptoms: Shortness of breath Comments: frequent pvc's, pac's Stage: 2 Duration (min): --- HR (bpm): 71 SBP (mmHg): 172 DBP (mmHg): 69 Stage: 3 Duration (min): --- HR (bpm): 67 SBP (mmHg): 191 DBP (mmHg): 73 Stage: 4 Duration (min): --- HR (bpm): 70 SBP (mmHg): 202 DBP (mmHg): 80 Cardiac Symptoms: Shortness of breath Resting ECG bradycardia, 1st degree AVB, left anterior fascicular block, possibleleft ventricular hypertrophy. prior septal infarct. Stress ECG Stress ECG is negative for ischemia. Arrhythmias Occasional PACs at rest. Frequent PVCs. Termination Reason: Protocol completed Heart Rate Response : Resting HR (bpm): 50 : Peak HR (bpm): 72 : Max Predicted HR (bpm): 139 : % of Max Predicted HR: 52 % : Target HR (bpm): 118 Blood Pressure Response : Rest Sys. BP (mmHg): 162 : Rest Diast. BP (mmHg): 67 : Peak Sys. BP (mmHg): 202 : Peak Weathers. BP (mmHg): 80 : Max Rate Pressure Product (bpm*mmHg): 14,544 Medication Regadenoson Dose: 0.4 mg Report Signatures Finalized by Abel De La Garza on 09/22/2024 02:41 PM Gm Sawyer MD CARDIAC SERVICES CUPID Final Res ult from Last 3 Months Insurance [facility] MANAGED MEDICARE ADV Care Teams Global Marketing Specialist Relationship Specialty Start Date End Date Kenneth Dsouza DO [address] [place] [id number] PCP - General Family Medicine 07/16/22
--- OUTSIDE RECORDS SUMMARY | 2024-09-27 16:02 | XMS_ITS | Continuity of Care Document ---
Author Organization [facility] Address [address] [place] [address] [facility] [address] [place] [address] Phone Care Team Providers Care Talent Acquisition Sourcer Name Role Phone Tonio Goldstein Unavailable Unavailable Procedures Procedure Date Eye Exam, New Patient Advance Directives Directive Yes / No Effective Date File Name No Information Encounters Encounter Description Practice Location Reason(s) For Visit Diagnoses Date Provider Providers Copied on Encounter [facility], [address] [place] [address] [address], [place], [place], [id number], [place] tel:[phone] [facility] [place] No Information 8[address] Angelita Tonio. [address] [facility] [address], [place], [address], [place]. tel:[phone] Family History Family Member Type Diagnosis Age At Onset No Information Payers Payer name Insurance type Covered democrat ID Authoriza tion(s) No Information Social History [...]
--- OUTSIDE RECORDS SUMMARY | 2024-09-27 16:02 | XMS_ITS | Patient Health Record ---
Author Organization [facility] Address [address] [place], [place] [id number] Care Team Providers Care Blintze Roller Name Role Phone KARLIE Kincaid Unavailable [phone] Kenneth Dsouza Unavailable Unavailable Reason For Referral No Information Plan Of Treatment No Information Insurance Providers Payer Name Payer Address Payer Phone Subscriber Number Group Number Insured Name Patient Relationship to Insured Coverage Start Date Coverage End Date [facility] [address] [address] [place] [address] [id number] SID LEWIS Self - patient is the insured
--- OUTSIDE RECORDS SUMMARY | 2024-09-27 16:02 | XMS_ITS | Continuity of Care Document ---
Author Organization [facility] Address [address] [facility] [address] [place] [address] Phone Care Team Providers Care Personnel Generalist Manager Name Role Phone Angelita DEL CID, Tonio [...] Provider Providers Copied on Encounter [facility], [address] [place] [address], [id number], tel:[phone] OPH CONSULT [facility] post op (chief complaint) Presence of intraocular lens 4 Angelita Howelll. [address] [facility], [address] [place] [address], [id number], [place]. tel:[phone] Referring Provider: No PCP A.. [facility], [address] [place] [address], [id number], tel:[phone] OPH CONSULT [facility] Same Day Post Op (chief complaint) No Information 4 Gerry Sawyer. [address] [place] [address], Suite [facility], [place], [place], [id number], [place]. tel:[phone] Referring Provider: No PCP A.. [facility], [address] [place] [address], [id number], [place] tel:[phone] [facility] No Information 4 Angelita Househil. [address] [facility], [address], [place], [place], [id number], [place]. tel:[phone] Referring Provider: No PCP A.. [facility], [address] [place] [address] [address], [place], [place], [id number], tel:[phone] OPH CONSULT [facility] No Information 4 Angelita Househil. [address], [address], [place], [place], [id number], [place]. tel:[phone] OFFICE/OUTPA TIENT VISIT, [facility], [address] [facility] [address], [place], [place], [id number], tel:[phone] OPH CONSULT [facility] blurry vision (chief complaint) DM (chief [...] [address], [address], [place], [place], [id number], [place]. tel:[phone] Referring Provider: No PCP A.. Family History Family Member Type Diagnosis Age At Onset Mother Problem Diabetes mellitus Problem No family history of Glaucom a Problem No family history of Macular degeneration Payers Payer name Insurance type Covered green party ID Authoryamilea tigucci(s) [facility] Medicare Advantage Ppo CI [id number] Social History Type Description Quantity Date Captured Comments Sex Female Smoking Status No Information Chief Complaint And Reason For Visit From encounter dated '05/14/2023 10:45'. post op (chief complaint). 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
[2024-09-27 16:19] LABS: Add Urine Microscopic? YES; Appearance Urine Sl Cloudy (Clear); Glucose Urine UA Negative (Negative); Leukocyte Esterase Ur 2+ LEU/UL (Negative); Nitrate Urine Negative (Negative); Specific Grav Ur 1.010 (1.010-1.020)
== END 2024-09-27 16:00 | disposition home or self-care (01) ==
LOC: CHSLAB 16:00
PROVIDERS: PCP Nurse Practitioner Family; Visit Provider Nurse Practitioner Family
DX: N39.0 Urinary tract infection, site not specified (principal); R39.9 Unspecified symptoms and signs involving the genitourinary system
CPT/HCPCS: 81001; 87086

== ENCOUNTER 2024-10-06 11:38 | Outpatient (CLI) | payer MEDICARE, SELFPAY ==
--- OUTSIDE RECORDS SUMMARY | 2024-10-06 11:40 | XMS_ITS | Referral Summary ---
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 Based on machine cross-calibration and [...] by the International Society of Clinical Densitometry. [id number] Lainey Funes MD IMG DXA PROCEDURES Final Re sult from Last 3 Months or Most Recently Relevant to Health Maintenance Insurance [facility] MEDICARE ADVANT[facility] Address: [address] [address] [place] [address] [facility] MEDICARE ADVANTAGE [facility] MEDICARE Address: [address] [address] [place] [address] Care Teams Flat Surfacer Jewel Relationship Specialty Start Date End Date Kenneth Dsouza DO [address] [place] [address] PCP - General Family Medicine 07/07/22
--- OUTSIDE RECORDS SUMMARY | 2024-10-06 11:40 | XMS_ITS | Clinical Summary ---
Author Organization [facility] Address [address] [facility] [place] [address] Care Team Providers Care Diesel Motor Mechanic Name Role Phone LiannaRosa Iselasteffi JONES Primary Care Provider [phone] [facility] Affiliates and Associated Physician Practices is amultiple site organization consisting of ambulatory clinics and hospital sitesin [place], [place], [place] and [place]. This disclosure is being madepursuant to the Care Everywhere program and may not contain all information available regarding this patient. Last updated 17.[facility] Allergies Active Allergy Reactions Criticality Noted Date [...] Encounters Date Type Department Care Team Description 10/03/2024 Results Follow-Up [facility] [address] [address] Andressa Prakash PA-C 09/22/2024 10:09 AM CDT - 09/22/2024 11:59 PM CDT Hospital Encounter [facility] [address] [place] [address] Gm Sawyer MD Discharge Disposition: Home or Self Care 09/22/2024 8:48 AM CDT - 09/27/2024 11:59 PM CDT Hospital Encounter [facility] [address] [place] [address] Gm Sawyer MD Discharge Disposition: Home or Self Care 09/22/2024 8:19 AM CDT - 09/22/2024 8:47 AM CDT Hospital Encounter [facility] [address] [place] [address] Gm Sawyer MD Discharge Disposition: Home or Self Care 09/13/2024 Travel 09/08/2024 10:20 AM CDT Office Visit [facility] [address] 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 [address] [facility], [address] [place] [address] Gm Sawyer MD Refill Request from Last [...] Routine 09/22/2024 2:03 PM CDT CAD in eek artery Hx of CABG ECHO COMPLETE Routine 09/22/2024 12:06 PM CDT Coronary artery disease involving coronary bypass graft of eek heart, unspecified whether angina present STRESS TEST Routine 09/22/2024 10:21 AM CDT CAD in eek artery Hx of CABG from Last 3 [...] provided if blank. Indication: I25.10: CAD in eek artery Z95.1: Hx of CABG [employer]: 33 [...] provided if blank. Indication: I25.10: CAD in eek artery Z95.1: Hx of CABG [employer]: 33 [...] Oliva MD on 09/22/2024 2:14 PM Gm HUNG ORDERABLES Final Result * ECHO COMPLETE (09/22/2024 [...] mmHg [facility] PACS LVOT pk [place] 101.32 cm/s [facility] F UJI PACS [...] PACS AV VTI 31.043 cm [facility] I PACS MV A pk [place] 73.666 [...] 10:18 AM Patient Status: O/P Study Site: [facility] Primary Location: [facility] EStudy Info Technical Quality: Adequate Exam Type: ECHO COMPLETE Indications I25.810 - Coronary artery disease involving coronary bypass graft of eek heart, unspecified whether angina present Procedure(s) * A complete 2D, color Doppler, spectral Doppler, and M-Mode transthoracic echocardiogram was performed. Staff Referring Physician: Gm Sawyer Ordering Provider: Gm Sawyer Attending Physician: Gm Sawyer Medical Library Assistant: Kayleigh Taylor [facility] Left Ventricle The left ventricle is normal [...] Peak Gradient 3 mmHg PV Regurgitation Doppler OK End Diastolic Gradient 7 mmHg Mitral Valve [...] Artery Doppler PA End Diastolic Pressure for OK 10 mmHg Aorta Name Value Normal Ascending [...] 10:18 AM Patient Status: O/P Study Site: [facility] Primary Location: [facility] EStudy Info Technical Quality: Adequate Exam Type: ECHO COMPLETE Indications I25.810 - Coronary artery disease involving coronary bypass graft of eek heart, unspecified whether angina present Procedure(s) * A complete 2D, color Doppler, spectral Doppler, and M-Modetransthoracic echocardiogram was performed. Staff Referring Physician: Gm Sawyer Ordering Provider: Gm Sawyer Attending Physician: Gm Sawyer Medical Library Assistant: Kayleigh Taylor [facility] Left Ventricle The left ventricle is normal [...] Peak Gradient 3 mmHg PV Regurgitation Doppler OK End Diastolic Gradient 7 mmHg Mitral Valve [...] Artery Doppler PA End Diastolic Pressure for OK 10 mmHg Aorta Name Value Normal Ascending [...] 8:30 AM Patient Status: O/P Study Site: [facility] Primary Location: [facility] EStudy Info Exam Type: STRESS TEST Indications I25.10 - CAD in eek artery Z95.1 - Hx of CABG Procedure(s) [...] 8:30 AM Patient Status: O/P Study Site: [facility] Primary Location: [facility] EStudy Info Exam Type: STRESS TEST Indications I25.10 - CAD in eek artery Z95.1 - Hx of CABG Procedure(s) [...] De La Garza on 09/22/2024 02:41 PM us Gm Sawyer MD [facility] Final Res ult from Last 3 Months Insurance [facility] MANAGED MEDICARE ADV Care Teams Diesel Motor Mechanic Relationship Specialty Start Date End Date Kenneth Dsouza DO [address] [place] [address] PCP - General Family Medicine 07/16/22
--- OUTSIDE RECORDS SUMMARY | 2024-10-06 11:40 | XMS_ITS | Clinical Summary ---
Author Organization [facility] Address [address] [facility] [address] 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
--- OUTSIDE RECORDS SUMMARY | 2024-10-06 11:40 | XMS_ITS | Patient Health Record ---
Author Organization [facility] Address [address] [place], [place] [id number] Care Team Providers Care Tissue Recovery Technician Name Role Phone KARLIE Kincaid Unavailable [phone] Kenneth Dsouza Unavailable Unavailable Reason For Referral No Information Plan Of Treatment No Information Insurance Providers Payer Name Payer Address Payer Phone Subscriber Number Group Number Insured Name Patient Relationship to Insured Coverage Start Date Coverage End Date [facility] [address] [address] [place] [id number] SID LEWIS Self - patient is the insured
--- OUTSIDE RECORDS SUMMARY | 2024-10-06 11:40 | XMS_ITS | Encounter Summary ---
Author Organization [facility] Address [address] [place] [address] Care Team Providers Care Spray Applicator Name Role Phone Unavailable Primary Care Provider Unavailabl e Encounter Details Date Type Department Care Team (Late st Contact Info) Description 07/23/1998 Outpatient Historical HIS MD Tila DELEON Bakr, MD 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
--- OUTSIDE RECORDS SUMMARY | 2024-10-06 11:40 | XMS_ITS | Clinical Summary ---
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 Based on machine cross-calibration and [...] by the International Society of Clinical Densitometry. [id number] Lainey Funes MD IMG DXA PROCEDURES Final Re sult from Last 3 Months or Most Recently Relevant to Health Maintenance Insurance [facility] MEDICARE ADVANTAGE [facility] MEDICARE Address: [address] [place], [place] [id number] [facility] MEDICARE ADVANTAGE [facility] MEDICARE Address: [address] [place] [phone] Care Teams Clamp Carrier Operator Relationship Specialty Start Date End Date Kenneth Dsouza DO [address] [place] [address] PCP - General Family Medicine 07/07/22
--- OUTSIDE RECORDS SUMMARY | 2024-10-06 11:40 | XMS_ITS | Encounter Summary ---
Author Organization [facility] Address [address] [place] [address] Care Team Providers Care Boil Off Machine Operator Cloth Name Role Phone Kenneth Dsouza DO Primary Care Provider Encounter Details Date Type Department Care Team (Late st Contact Info) Description 10/03/2024 Results Follow-Up [facility] [address] [place] [address] Andressa Prakash, PATylerC [facility] [address] [address] Social History Tobacco Use Types Packs/Day Years [...] Diagnoses Not on filedocumented in this encounter Care Teams Boil Off Machine Operator Cloth Relationship Specialty Start Date End Date Kenneth Dsouza DO [address] [place] [address] PCP - General Family Medicine 07/16/22 documented as of this encounter
--- OUTSIDE RECORDS SUMMARY | 2024-10-06 11:40 | XMS_ITS | Encounter Summary ---
Author Organization [facility] Address 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
--- OUTSIDE RECORDS SUMMARY | 2024-10-06 11:40 | XMS_ITS | Encounter Summary ---
Author Organization [facility] Address 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
[2024-10-06 11:52] LABS: Add Urine Microscopic? NO; Appearance Urine Clear (Clear); Glucose Urine UA Negative (Negative); Leukocyte Esterase Ur Negative (Negative); Nitrate Urine Negative (Negative); Specific Grav Ur 1.015 (1.010-1.020)
== END 2024-10-06 11:39 | disposition home or self-care (01) ==
LOC: CHSLAB 11:39
PROVIDERS: PCP Family Medicine; Visit Provider Family Medicine
DX: R39.9 Unspecified symptoms and signs involving the genitourinary system (principal)
CPT/HCPCS: 81003